=== PATIENT | female | born 1965 | race Caucasian/White ===

== ENCOUNTER 2019-12-26 12:11 | Outpatient (REF) | payer MEDICAID, SELFPAY ==
[2019-12-26 13:39] LABS: MANUAL DIFF FLAG NO
[2019-12-26 13:41] LABS: Basophils Percent Auto 0.3 % (0-2); Hematocrit 33.5 % (37-47); Hemoglobin 11.2 g/dl (12.0-16.0); Imm Gran Abs Auto 0.03 X10*3/uL (0.00-0.03); Imm Gran Pct Auto 0.3 % (0.0-0.4); Lymphocytes Absolute Auto 2.2 X10*3/uL (1.2-4.9); Lymphocytes Percent Auto 21.2 % (20-40); Mean Corpuscular HGB Conc 33.4 g/dl (31.0-35.0); Mean Corpuscular Hemoglobin 31.9 pg (27.0-33.0); Mean Corpuscular Volume 95.4 fL (80-98); Mean Platelet Volume 11.2 fL (9.4-12.3); Monocytes Percent Auto 9.4 % (2-11); Neutrophils Percent Auto 68.8 % (45-73); Platelet Count 334 X10*3/uL (160-400); Red Blood Count 3.51 X10*6/uL (4.20-5.50); Red Cell Distribution Width 11.6 % (11.0-16.0); White Blood Count 10.2 X10*3/uL (4.8-10.8)
== END 2019-12-26 12:12 | disposition home or self-care (01) ==
LOC: HO.10HDL 12:11
PROVIDERS: Visit Provider Clinical Nurse Specialist Psychiatric/Mental Health, Adult
DX: Z79.899 Other long term (current) drug therapy (principal)
CPT/HCPCS: 36415; 85025

== ENCOUNTER 2020-01-25 12:47 | Outpatient (REF) | payer MEDICAID, SELFPAY ==
[2020-01-25 13:49] LABS: MANUAL DIFF FLAG NO
[2020-01-25 14:04] LABS: Basophils Percent Auto 0.4 % (0-2); Hematocrit 33.8 % (37-47); Hemoglobin 11.4 g/dl (12.0-16.0); Imm Gran Abs Auto 0.02 X10*3/uL (0.00-0.03); Imm Gran Pct Auto 0.2 % (0.0-0.4); Lymphocytes Absolute Auto 2.5 X10*3/uL (1.2-4.9); Lymphocytes Percent Auto 27.1 % (20-40); Mean Corpuscular HGB Conc 33.7 g/dl (31.0-35.0); Mean Corpuscular Hemoglobin 31.5 pg (27.0-33.0); Mean Corpuscular Volume 93.4 fL (80-98); Mean Platelet Volume 11.1 fL (9.4-12.3); Monocytes Absolute Auto 0.7 X10*3/uL (0.1-1.2); Monocytes Percent Auto 7.5 % (2-11); Neutrophils Absolute Auto 6.1 X10*3/uL (2.0-8.3); Neutrophils Percent Auto 64.8 % (45-73); Platelet Count 360 X10*3/uL (160-400); Red Blood Count 3.62 X10*6/uL (4.20-5.50); Red Cell Distribution Width 11.9 % (11.0-16.0); White Blood Count 9.4 X10*3/uL (4.8-10.8)
== END 2020-01-25 12:48 | disposition home or self-care (01) ==
LOC: HO.10HDL 12:47
PROVIDERS: Visit Provider Clinical Nurse Specialist Psychiatric/Mental Health, Adult
DX: Z79.899 Other long term (current) drug therapy (principal)
CPT/HCPCS: 36415; 85025

== ENCOUNTER 2020-03-09 09:58 | Outpatient (REF) | payer MEDICAID, SELFPAY ==
[2020-03-09 10:35] LABS: MANUAL DIFF FLAG NO
[2020-03-09 10:38] LABS: Basophils Percent Auto 0.4 % (0-2); Eosinophils Absolute Auto 0.2 X10*3/uL (0.0-0.4); Eosinophils Percent Auto 2.4 % (0-4); Hematocrit 33.3 % (37-47); Hemoglobin 10.9 g/dl (12.0-16.0); Imm Gran Abs Auto 0.01 X10*3/uL (0.00-0.03); Imm Gran Pct Auto 0.1 % (0.0-0.4); Lymphocytes Percent Auto 27.8 % (20-40); Mean Corpuscular HGB Conc 32.7 g/dl (31.0-35.0); Mean Corpuscular Hemoglobin 30.8 pg (27.0-33.0); Mean Corpuscular Volume 94.1 fL (80-98); Mean Platelet Volume 10.7 fL (9.4-12.3); Monocytes Absolute Auto 0.7 X10*3/uL (0.1-1.2); Monocytes Percent Auto 10.1 % (2-11); Neut%MD 59.2 %; Neutrophils Absolute Auto 4.1 X10*3/uL (2.0-8.3); Neutrophils Percent Auto 59.2 % (45-73); Platelet Count 301 X10*3/uL (160-400); Red Blood Count 3.54 X10*6/uL (4.20-5.50); Red Cell Distribution Width 11.9 % (11.0-16.0)
== END 2020-03-09 09:59 | disposition home or self-care (01) ==
LOC: HO.LAB 09:58
PROVIDERS: PCP Internal Medicine Geriatric Medicine; Visit Provider Psychiatry & Neurology Psychiatry
DX: Z79.899 Other long term (current) drug therapy (principal)
CPT/HCPCS: 36415; 85025; 85048

== ENCOUNTER → 2020-05-13 15:23 | Outpatient (BNVA) | payer MEDICAID, SELFPAY | PROVIDERS: PCP Internal Medicine Geriatric Medicine; Visit Provider Nurse Practitioner ==

== ENCOUNTER → 2020-05-30 09:31 | Outpatient (BNVA) | payer MEDICAID, SELFPAY | PROVIDERS: PCP Internal Medicine Geriatric Medicine; Visit Provider Nurse Practitioner ==

== ENCOUNTER → 2021-07-03 11:29 | Outpatient (BNVA) | payer MEDICAID, SELFPAY | PROVIDERS: PCP Internal Medicine Geriatric Medicine; Referring Provider Internal Medicine Geriatric Medicine; Visit Provider Nurse Practitioner | DX: Z51.81 Encounter for therapeutic drug level monitoring (principal); K62.6 Ulcer of anus and rectum; K59.00 Constipation, unspecified | CPT/HCPCS: 99212 ==

== ENCOUNTER → 2022-01-01 10:49 | Outpatient (BNVA) | payer MEDICAID, SELFPAY | PROVIDERS: PCP Internal Medicine Geriatric Medicine; Referring Provider Internal Medicine Geriatric Medicine; Visit Provider Nurse Practitioner | DX: K59.00 Constipation, unspecified (principal); K62.6 Ulcer of anus and rectum; D12.6 Benign neoplasm of colon, unspecified | CPT/HCPCS: 99212 ==

== ENCOUNTER 2022-03-19 10:24 | Outpatient (REF) | payer MEDICAID, SELFPAY ==
--- NOTE | ~2022-03-19 | MM_ITS ---
EXAMINATION: MM SCREENING DIGITAL BREAST TOMOSYNTHESIS, BILATERAL CLINICAL INFORMATION: Screening. Asymptomatic. The lifetime risk of breast cancer based on the Tyrer-Cuzick Model is 6%. COMPARISON: Mammography: 04/19/2014, 12/06/2012 TECHNIQUE: Digital breast tomosynthesis is performed in both the craniocaudal and mediolateral oblique views along with computer-aided detection (CAD). Synthesized 2D images are generated from the tomosynthesis. Additional exaggerated right CC view is provided. FINDINGS: The breasts are heterogeneously dense, which may obscure small masses (ACR BI-RADS breast composition Category c). Breast tissue composition borders on extremely dense in the anterior breasts. Parenchymal pattern is similar to prior studies. There is no interval mass or architectural abnormality. Scattered bilateral similar appearing predominantly dermal calcifications and some vascular calcifications are present. The axilla are unremarkable. The skin contours are smooth. MM/MM tomosynthesis screening BI IMPRESSION: No mammographic evidence of malignancy. ASSESSMENT: BI-RADS 2: Benign RECOMMENDATION: Routine annual mammography screening. This patient's information was entered into a reminder system with a target due date for their next mammogram.
== END 2022-03-19 10:25 | disposition home or self-care (01) ==
LOC: HO.MAMMO 10:24
PROVIDERS: PCP Internal Medicine Geriatric Medicine; Visit Provider Internal Medicine Geriatric Medicine
DX: Z12.31 Encounter for screening mammogram for malignant neoplasm of breast (principal)
CPT/HCPCS: 77063; 77067

== ENCOUNTER → 2022-03-25 10:33 | Outpatient (BNVA) | payer MEDICAID, SELFPAY | PROVIDERS: PCP Internal Medicine Geriatric Medicine; Visit Provider Nurse Practitioner | DX: K59.04 Chronic idiopathic constipation (principal); K64.9 Unspecified hemorrhoids | CPT/HCPCS: 99212 ==

== ENCOUNTER → 2022-06-05 10:48 | Outpatient (BNVA) | payer MEDICAID, SELFPAY | PROVIDERS: PCP Internal Medicine Geriatric Medicine; Visit Provider Nurse Practitioner | DX: K59.00 Constipation, unspecified (principal); K64.9 Unspecified hemorrhoids; K62.6 Ulcer of anus and rectum | CPT/HCPCS: 99212 ==

== ENCOUNTER 2022-12-31 08:05 | Outpatient (AMB) | payer MEDICAID, SELFPAY ==
[2022-12-31 08:09] VITALS: BP 133/62; PULSE 92; BMI 23.3
--- NOTE | 2022-12-31 08:09 | A.OFFVIS_ITS ---
Intake Vital Signs 12/31/22 08:09 Height 5 ft 1 in Weight 123 lb 7.342 oz BMI 23.3 BP 133/62 Blood Pressure Location Rt brachial Position Sitting Pulse 92 Pulse Source Pulse Oximeter Intake Visit Reasons: 6 months f/u [facility]IC Intake Note: Pt presents to the office today for a 6 month follow up for CIC. Pt states she is doing well and states she has been doing better with the medications and hasn't had constipation issues. Pt denies any other GI concerns at this time. Accompanied by: day habilitation supervisor Allergies divalproex sodium [From DEPAKOTE] Allergy (Unknown, Verified 12/31/22 08:10) UNKNOWN easy off Allergy (Severe, Uncoded 12/31/22 08:10) Unknown HPI 6 months f/u [facility]IC HPI Details Assessment & Plan (1) Constipation: Code(s): K59.00 - Constipation, unspecified Plan: They ran out of senna, we had refilled it but the pharmacy seemed to miss dispensing it. Obviously, this caused her to be constipated. They called the pharmacy and they will not restart this. I change the order to 2 tabs qhs and 1- 2 tabs prn if needed for CIC, since she may need more initially. ROV 6 mos (2) Hemorrhoids: Code(s): K64.9 - Unspecified hemorrhoids (3) Tubular adenoma of colon: Comment: 2019 colonoscopy repeat in 5 years Code(s): D12.6 - Benign neoplasm of colon, unspecified (4) Rectal ulcer: Code(s): K62.6 - Ulcer of anus and rectum Medications: Refilled methylcellulose (l axative) (Citrucel ) 1,000 mg (2 x 500 mg) PO DAILY 30 da ys 60 tabs 11RF K59.00 - Constipat ion, unspecified, K62.6 - Ulcer of a nus and rectum Discontinued bisacodyl (Dulcola x (bisacodyl)) Discontinued Reaso n: Doctor's Order 10 mg (2 x 5 mg) P O BEDTIME 30 days 60 tabs 6RF K59.00 - Constipat ion, unspecified TODAY'S VISIT She is here with her asian studies program chair. She is now doing well with her senna, but likes taking it all qd in stead of bid. This is fine. She expresses concerns about swallowing larger pills, apparently her pharmacy is change manager of construction is on some of them and although she does not choke she does not like swallowing larger pills. Apparently this is happen with her closet oral and with her CLozaril and Citrucel. Although I cannot address the Clozaril. I can say that is perfectly fine to crush the Citrucel tablets of put them in applesauce. We also talked about doing the powder in water but she does not prefer this. ROV 6 mos. She will be due for repeat colonoscopy in 2023 we should discuss this at her next visit. [facility] Surgical History Hx of colonoscopy Family History Family/Other No problems noted. Social History (Updated 12/31/22 @ 08:12 by Antoinette Waddell MA) Alcohol intake: current Alcohol intake frequency: does not drink Patient Tobacco Use Status: Never used Tobacco Review of Systems Const Denies fatigue, Denies fever(s), Denies night sweats, Denies poor appetite and Denies weight loss ENT Reports Normal hearing present, Denies dental pain, Denies dysphagia, Denies hearing loss, Denies mouth pain, Denies odynophagia, Denies throat swelling, Denies tongue swelling and Reports other (Dentition adequate) Card Reports no additional complaints Resp Reports no additional complaints GI Denies abdominal pain, Denies melena, Denies bloating, Denies hematochezia, Reports constipation, Denies GI cramping, Denies dysphagia, Denies excessive flatus, Denies early satiety, Denies heartburn, Denies diarrhea, Denies nausea, Denies odynophagia, Denies vomiting and Denies hematemesis Skin/Breast Denies pruritus, Denies lesions, Denies rash and Denies jaundice Neuro Reports Normal hearing present and Denies Abnormal speech present Endo Denies fatigue Aller/Immun Denies throat swelling and Denies tongue swelling Physical Exam Vital Signs: Last Vital Signs Pulse 92 12/31/22 08:09 BP 133/62 12/31/22 08:09 BMI result Body Mass Index 23.3 Const General: cooperative, no acute distress, well developed and well groomed Nutritional Appearance: average body habitus and well nourished Orientation/consciousness: oriented to person, oriented to place and oriented to time Limitations: No language barrier and other limitations HEENT Head: Yes normocephalic and Yes atraumatic Eyes General: appearance normal, both eyes and all related structures Pupils: Equal, round and reactive pupils present Neck Neck: Yes normal visual inspection and Yes no lymphadenopathy Thyroid: Thyroid normal Resp Effort & Inspection: normal respiratory effort and able to speak in complete sentences Auscultation: clear to auscultation bilaterally Cardio Rate: regular rate Rhythm: regular rhythm Heart sounds: Normal, physiologic split S2 sound present Peripheral pulses: radial pulses present and posterior tibial pulses present GI Inspection: No distended and No Abdominal panniculus present Palpation (GI): Soft to palpation, nontender, no guarding, not rigid and No hepatosplenomegaly present Percussion: Yes normal to percussion Auscultation: normal bowel sounds Rectal Exam - Female: deferred Skin General skin exam: no rashes or lesions noted, turgor normal, skin not dry, no jaundice, No spider nevi and no striae Rashes: no rashes Nails: normal Neuro General: oriented to person, oriented to place and oriented to time Cranial nerves: Yes Equal, round and reactive pupils present and Yes Normal hearing present Speech: No Abnormal speech present Extrem General: Yes normal to inspection, No clubbing, No cyanosis and No edema Psych Appearance: grossly normal and well kempt Mental Status: mental status grossly normal Speech and movement: Normal speech and movement present Affect: normal affect Attitude: cooperative Thought process: Normal thought process present and not confabulating Thought content: Normal thought content present Insight: Limited insight present (Psych) Judgement: Limited judgement present (Psych) Assessment & Plan Assessment & Plan (1) Constipation: Code(s): K59.00 - Constipation, unspecified Plan: She is here with her asian studies program chair. She is now doing well with her senna, but likes taking it all qd in stead of bid. This is fine. She expresses concerns about swallowing larger pills, apparently her pharmacy is change manager of construction is on some of them and although she does not choke she does not like swallowing larger pills. Apparently this is happen with her closet oral and with her CLozaril and Citrucel. Although I cannot address the Clozaril. I can say that is perfectly fine to crush the Citrucel tablets of put them in applesauce. We also talked about doing the powder in water but she does not prefer this. ROV 6 mos. She will be due for repeat colonoscopy in 2023 we should discuss this at her next visit. (2) Tubular adenoma of colon: Comment: 2019 colonoscopy repeat in 5 years Code(s): D12.6 - Benign neoplasm of colon, unspecified Medications: Changed From sennosides (senna) 17.2 mg (2 x 8.6 mg) PO BID 30 days 120 tabs 6RF K59.00 - Constipation, unspecified, K62.6 - Ulcer of anus and rectum To sennosides (senna) 17.2 mg (2 x 8.6 mg) PO DAILY 30 days 60 tabs 6RF K59.00 - Constipation, unspecified, K62.6 - Ulcer of anus and rectum From methylcellulose (laxative) (Citrucel) 1,000 mg (2 x 500 mg) PO DAILY 30 days 60 tabs 11RF K59.00 - Constipation, unspecified, K62.6 - Ulcer of anus and rectum To methylcellulose (laxative) (Citrucel) Ok to crush and put in applesauce, etc 1,000 mg (2 x 500 mg) PO DAILY 30 days 60 tabs 11RF K59.00 - Constipation, unspecified, K62.6 - Ulcer of anus and rectum Refilled docusate sodium (Colace) 100 mg PO BID 30 days 60 caps 11RF K59.00 - Constipation, unspecified, K62.6 - Ulcer of anus and rectum Coding Level of Care Code Est Pt Level 3 (81544) Diagnoses Constipation K59.00 Tubular adenoma of colon D12.6
== END 2022-12-31 08:30 | disposition home or self-care (01) ==
PROVIDERS: Visit Provider Nurse Practitioner
DX: K59.00 Constipation, unspecified (principal); D12.6 Benign neoplasm of colon, unspecified
CPT/HCPCS: 99213

== ENCOUNTER → 2022-12-31 08:05 | Outpatient (BNVA) | payer MEDICAID, SELFPAY | PROVIDERS: Visit Provider Nurse Practitioner | DX: K59.00 Constipation, unspecified (principal); D12.6 Benign neoplasm of colon, unspecified | CPT/HCPCS: 99212 ==

== ENCOUNTER 2023-10-06 10:25 | Outpatient (REF) | payer MEDICAID, SELFPAY ==
--- NOTE | ~2023-10-06 | MM_ITS ---
EXAMINATION: MM SCREENING DIGITAL BREAST TOMOSYNTHESIS, BILATERAL CLINICAL INFORMATION: Screening. Asymptomatic. COMPARISON: Mammography: This study is compared with prior exams dating back to 2013. All TECHNIQUE: Digital breast tomosynthesis is performed in both the craniocaudal and mediolateral oblique views along with computer-aided detection (CAD). Synthesized 2D images are generated from the tomosynthesis. FINDINGS: The breasts are extremely dense, which lowers the sensitivity of mammography (ACR BI-RADS breast composition Category d). There are no significant masses, abnormal calcifications, or other abnormalities. Vascular calcifications noted in this 58-year-old patient, right greater than left. MM/MM tomosynthesis screening BI IMPRESSION: No mammographic evidence of malignancy. ASSESSMENT: BI-RADS BI-RADS 2 - Benign Findings RECOMMENDATION: Routine annual mammography screening. 1 year F/U This examination should not preclude the clinical evaluation of a suspicious palpable abnormality. This patient's information was entered into a reminder system with a target due date for their next mammogram. Electronically signed by: Alexsandra Wall MD 11/03/2023 10:04 AM EDT
== END 2023-10-06 10:26 | disposition home or self-care (01) ==
LOC: HO.MAMMO 10:25
PROVIDERS: PCP Internal Medicine Geriatric Medicine; Visit Provider Internal Medicine Geriatric Medicine
DX: Z12.31 Encounter for screening mammogram for malignant neoplasm of breast (principal)
CPT/HCPCS: 77063; 77067

== ENCOUNTER 2024-06-01 10:23 | Outpatient (REF) | payer MEDICAID, SELFPAY ==
[2024-06-01 11:43] LABS: MANUAL DIFF FLAG NO
[2024-06-01 12:02] LABS: Basophils Percent Auto 0.7 % (0-2); Hematocrit 32.9 % (37.0-47.0); Imm Gran Abs Auto 0.02 X10*3/uL (0.00-0.03); Imm Gran Pct Auto 0.3 % (0.0-0.4); Lymphocytes Absolute Auto 1.4 X10*3/uL (1.2-4.9); Lymphocytes Percent Auto 22.3 % (20-40); Mean Corpuscular HGB Conc 33.4 g/dl (31.0-35.0); Mean Corpuscular Hemoglobin 30.8 pg (27.0-33.0); Mean Corpuscular Volume 92.2 fL (80.0-98.0); Mean Platelet Volume 9.9 fL (9.4-12.3); Monocytes Absolute Auto 0.3 X10*3/uL (0.1-1.2); Monocytes Percent Auto 5.6 % (2-11); Neutrophils Absolute Auto 4.3 x10*3/uL (2.0-8.3); Neutrophils Percent Auto 71.1 % (45-73); Platelet Count 406 X10*3/uL (160-400); Red Blood Count 3.57 X10*6/uL (4.20-5.50); White Blood Count 6.1 X10*3/uL (4.8-10.8)
[2024-06-01 12:15] LABS: Alanine Aminotransferase 23 U/L (0-31); Albumin Level 3.7 g/dL (3.5-5.0); Alkaline Phosphatase 119 U/L (39-117); Anion Gap 10 (12-20); Aspartate Amino Transferase 22 U/L (5-31); Bilirubin Total 0.2 mg/dL (0.0-1.0); Blood Urea Nitrogen 9 mg/dL (9-16); Calcium 9.3 mg/dL (8.4-10.2); Carbon Dioxide 29 mmol/L (22-29); Chloride 105 mmol/L (96-108); Cholesterol 131 mg/dL (<200); Estimated Glomerular Filt Rate > 60; Glucose Random 98 mg/dL (60-115); HDL Cholesterol 49 mg/dL (>40); Iron 47 mcg/dL (30-160); LDL Cholesterol Calculated 77 mg/dL (<100); Percent Iron Saturation 21 % (15-50); Sodium 140 mmol/L (135-145); Total Iron Binding Capacity 221 mcg/dL (228-428); Total Protein 8.2 g/dL (6.5-8.0); Triglycerides 27 mg/dL (<150); Unsaturated Iron Binding 174 ug/dL
--- OUTSIDE RECORDS SUMMARY | 2024-06-01 12:16 | XMS_ITS | Encounter Summary ---
Author Organization [facility] Address [address] [place] [address] [address] [place] [address] Care Team Providers Care Master Deputy Sheriff Court Security Name Role Phone Name, Fam HUIZAR Primary Care Provider [phone] Lesia Carrasco MD Primary Care Provider + Encounter Details Date Type Department Care Team (Late st Contact Info) Description 08/05/2022 Abstract [facility] [address] [place], [place] [phone] Name, MD Fam [address] [place] [address] Social History Tobacco Use Types Packs/Day Years Used Date Smoking Tobacco: Never Assessed Comments Unknown Sex and Gender Information Value Date Recorded Sex Assigned at Female 12/22/2021 10:14 AM EDT Legal Sex Female 10:14 AM EDT Gender Identity Choose not to disclose 10:14 AM EDT Sexual Orientation Choose not to disclose 2021 10:14 AM EDT documented as of this encounter Plan of Treatment Not on file documented as of this encounter Procedures Procedure Name Priority Date/Time Associated Diagnosis Comments COLONOSCOPY Routine 06/21/2018 9:16 AM EDT documented in this encounter Results * Colonoscopy (06/21/2018 9:16 AM EDT) Colonoscopy Normal Normal Narrative Bernice Pham - 06/21/2018 9:16 AM EDT Recommended 5 year [place] ( [facility] Historical Provider HEALTH MAINTENANCE Final Result documented in this encounter Visit Diagnoses Not on filedocumented in this encounter Care Teams Master Deputy Sheriff Court Security Relationship Specialty Start Date End Date Name, MD Fam [address] [place] [address] PCP - General Family Medicine 10/05/17 04/13/24 Lesia Carrasco MD [address] [place] [address] PCP - General Internal Medicine 04/14/24 Kristine Silva 10/26/13 documented as of this encounter
--- OUTSIDE RECORDS SUMMARY | 2024-06-01 12:16 | XMS_ITS | Encounter Summary ---
Author Organization [facility] Address [address] [place] [address] [address] [place] [address] Care Team Providers Care Barrel Planer Name Role Phone NameFam MD Primary Care Provider [phone] Lesia Carrasco MD Primary Care Provider + Encounter Details Date Type Department Care Team (Late st Contact Info) Description 04/06/2022 Abstract [facility] [address] [place] [address] [phone] Name, MD Fam [address] [place] [phone] Social History Tobacco Use Types Packs/Day Years [...] on file documented as of this encounter Visit Diagnoses Not on filedocumented in this encounter Care Teams Barrel Planer Relationship Specialty Start Date End Date NameFam MD [address] [place] [address] [phone] PCP - General Family Medicine 10/05/17 04/13/24 Lesia Carrasco MD [address] [place] [address] [phone] PCP - General Internal Medicine 04/14/24 Kristine Silva 10/26/13 documented as of this encounter
--- OUTSIDE RECORDS SUMMARY | 2024-06-01 12:16 | XMS_ITS | Encounter Summary ---
Author Organization [facility] [employer] Address [address] [place] [address] Care Team Providers Care Rug Dyer Name Role Phone Name, Fam HUIZAR Primary Care Provider [phone] Lesia Carrasco MD Primary Care Provider + Reason for Visit * Reason Onset Date Comments Appointment Request 04/03/2024 Encounter Details Date Type Department Care Team (Late st Contact Info) Description 04/03/2024 Telephone [facility] [address] [place], [place] [phone] Name, MD Fam [address] [place], [place] [phone] Appointment Request Social History Tobacco Use Types Packs/Day Years Used Date Smoking Tobacco: Never Smokeless Tobacco: Never Alcohol Use Standard Drinks/Week Comments Never 0 (1 standard drink = 0.6 oz pur e alcohol) Housing Stability Answer Date Recorded What is your housing situation today? I have [place] [place] 12/29/[address] you li ve. Do you have problems with any of the following? None of the above 12/29/2023 Food Insecurity Answer Date Recorded Within the past 12 months, y ou worried that your food would run out before you got money to buy more: Never True 12/29/2023 Within the past 12 months,th e food you bought just didn't last and you didn't have enough money to get more: Never True 07/2023 Transportation Answer Date Recorded In the past 12 months, has l ack of transportation kept you from medical appts, meetings, work or from getting things needed for daily living? No 12/29/2023 Utilities Answer Date Recorded In the past 12 months, has t he electric, gas, oil or water company threatened to shut off services in your home? No 12/29/2023 Internet Access Answer Date Recorded Internet Access Q1 Yes 12/29/2023 Internet Access Q2 Not on file 12/29/2023 Comments No Sex and Gender Information Value Date Recorded Sex Assigned at Female 12/22/2021 10:14 AM EDT Legal Sex Female 10:14 AM EDT Gender Identity Choose not to disclose 10:14 AM EDT Sexual Orientation Choose not to disclose 2021 10:14 AM EDT documented as of this encounter Miscellaneous Notes * Telephone Encounter - Roel Eliu - 04/03/2024 4:51 PM EST TC from pt requesting an apptmnt for a pap for the month of april .. Pt would like Dr Carrasco toconduct the pap . documented in this encounter Plan of Treatment Not on file documented as of this encounter Visit Diagnoses Not on filedocumented in this encounter Care Teams Rug Dyer Relationship Specialty Start Date End Date Name, MD Fam [address] [place] [address] PCP - General Family Medicine 10/05/17 04/13/24 Lesia Carrasco MD [address] [place] [address] PCP - General Internal Medicine 04/14/24 Kristine Silva 10/26/13 documented as of this encounter
--- OUTSIDE RECORDS SUMMARY | 2024-06-01 12:17 | XMS_ITS | Clinical Summary ---
Author Organization [employer] Address [address] [place] [address] 7t [place] [address] Care Team Providers Care Research Scholar Name Role Phone Lesia Carrasco MD Primary Care Provider + Allergies Active Allergy Reactions Criticality Noted Date Comments Valproic Acid 02/25/2018 Medications docusate sodium (Colace) 100 MG capsuleIndication s:Constipation, unspecified constipation type TAKE 2 CAPSULE BY ORAL ROUTE EVERY DAY AT BEDTIME 180 capsule 3 3 Active LORazepam (Ativan) 1 MG tablet TAKE ONE (1) TABLET BY MOUTH THREE TIMES A DAY 3 Active benztropine (Cogentin) 1 MG tablet TAKE ONE (1) TABLET BY MOUTH TWICE A DAY 3 Active cloZAPine (Clozaril) 100 MG tablet TAKE ONE (1) TABLET BY MOUTH AT BEDTIME 2 Active divalproex (Depakote ER) 500 MG 24 hr tablet Take 2 tablets by mouth. Active mirtazapine (Remeron) 30 MG tablet TAKE ONE (1) TABLET BY MOUTH AT BEDTIME 3 Active naproxen (Naprosyn) 500 MG tablet take 1 tablet by oral route 2 times every day with food for muscle strain pain 2 Active chlorhexidine (Periogard) 0.12 % solution Place 15 mL into mouth between cheek and gum every 6 (six) hours. 1 Active permethrin (Elimite) 5 % cream Apply topically. 3 Active ferrous sulfate 325 (65 Fe) MG EC tabletIndications :Iron deficiency anemia, unspecified iron deficiency anemia type Take 1 tablet by mouth once every other day 45 tablet 3 4 Active folic acid (Folvite) 1 MG tablet TAKE 1 TABLET (1MG) BY ORAL ROUTE EVERY DAY 30 tablet 4 4 Active Ascorbic Acid (vitamin C) 500 MG tablet TAKE 1 TABLET (500 MG) BY MOUTH IN THE MORNING. 90 tablet 1 4 Active Active Problems Problem Noted Date Diagnosed Date Encounter for preventive health examination 12/23 Assessment & Plan (01/06/2024 11:46 AM EST): Discussed with patient re increase fresh fruit and vegetable intake. Counseled re moderate exercise as tolerated, up to 20min/d Patient feels safe at home. PAP smear: up to date, due in 2025. Mammogram: up to date, due in 10/16. Eye exam: overdue, will refer. CRC screen: UTD, due this year (FU TA), will leave a message to GI office to schedule fu. Lipids/FBS: to be ordered, overdue. Vaccinations: agreed to have Covid, Influenza, and TD vaccines. Dental visit: overdue, gave them dental clinic information. Iron deficiency 01/06/2024 Assessment & Plan (06/01/2024 9:54 AM EDT): Patient is not taking iron pills. . Advised to get labs done prior to next visit, POC discussed with Isela her primary caregiver. Follow-up with me in 3 to 4 weeks Assessment & Plan (01/06/2024 11:47 AM EST): Hx taking Iron tabs? Order cbc and iron study, she's not taking iron at this time. Severe mood disorder with psychotic features Assessment & Plan (06/01/2024 9:53 AM EDT): Patient seems to be doing well, no psychotic events or ideations. Continue close follow-up with mental health provider, continue clozapine, Cogentin She feels safe at home and is able to reach out for safety (to her caregivers) Follow-up with me in 6 months Encounters Date Type Department Care Team Description 06/01/2024 9:00 AM EDT Telemedicine [facility] [address] [place] [phone] Lesia Carrasco MD Iron deficiency (Primary Dx); Severe mood disorder with psychotic features (CMS/HCC) 06/01/2024 Travel 05/30/[address] [phone] Lesia Carrasco MD Chart prep 05/09/[address] [address] Lesia Carrasco MD Rekha recall 05/05/2024 Population Health Risk Score [facility] ([facility]) Department [address] [place] [phone] Provider, Population Health Generic 04/15/[address] [address] Lesia Carrasco MD scheduling 04/03/[address] [address] Fam Nunes MD Appointment Request 03/28/[address] [address] Fam Nunes MD Appointment Request from Last 3 Months Immunizations Name Administration Dates Next Due Influenza injectable quadrivalent preservative f ree 01/08/2022 Influenza, IIV3, injectable 10/15/2010, 9 Influenza, seasonal, injectable, preservative fr ee 01/06/2024 Moderna Covid-19 Vaccine 12+ 08/02/2020,07/06/19 21 Pfizer Covid-19 Vaccine + 01/06/2024 TD (adult), 2 Lf tetanus tox oid, preservative free, adsorbed 01/01/1999 Tdap 01/06/2024,11/27/2010 Social History Tobacco Use Types Packs/Day Years Used Date Smoking Tobacco: Never Smokeless Tobacco: Never Tobacco Cessation:Counseling Given: Not Answered Alcohol Use Standard Drinks/Week Comments Never 0 (1 standard drink = 0.6 oz pur e alcohol) Housing Stability Answer Date Recorded What is your housing situation today? I have susy ewst 12/29/[address] you li [...] not to disclose 2021 10:14 AM EDT Last Filed Vital Signs Vital Sign Reading Time Taken Comments Blood Pressure 123/75 01/06/2024 9:41 AM EST Pulse 95 01/06/2024 9:41 AM EST Temperature 36.7 ??C (98.1 ??F) 01/06/2024 9:41 AM ES T Respiratory Rate 16 01/06/2024 9:41 AM EST Oxygen Saturation 100% 01/06/2024 9:41 AM EST Inhaled Oxygen Concentration - - Weight 52.2 kg (115 lb 2 oz) 01/06/2024 9:41 AM EST Height 158 cm (5' 2.21 ) 01/06/2024 9:41 AM EST Body Mass Index 20.91 01/06/2024 9:41 AM EST Plan of Treatment Health Maintenance Due Date Last Done Comments CT Colonography 1965 Depression Screening 1965 FIT DNA/Cologuard 1965 FIT 1965 FOBT 1965 HIV Screening 1965 Sigmoidoscopy 1965 Alcohol/Substance Use Screening 1977 Hepatitis C Screening 06/23/1983 Hepatitis B Vaccines (2 of 3 - 19+ 3-dose series) 04/02/2014 03/05/2014 Pneumococcal Vaccine: 50+ Years (1 of 1 - PCV) 06/23/2015 Zoster Vaccines (1 of 2) 06/23/2015 Colonoscopy 2023 06/21/2018 Colorectal Cancer Screening 2023 SDOH Screening 12/28/2024 12/29/2023 Tobacco Screening 01/05/2025 01/06/2024 Cervical Cancer Screening 06/04/2025 HPV/Cotest 06/04/2025 06/04/2020 Pap Smear 06/04/2025 06/04/2020 Mammogram 10/05/2025 10/06/2023, 02/23, 03/19/2022 DTaP/Tdap/Td Vaccines (3 - Td or Tdap) 01/05/2034 01/06/2024, 11/27/2010, 01/01/1999 RSV Patients and Patients Aged 60 years or older (1 - 1-dose 75+ series) 2040 COVID-19 Vaccine Completed 01/06/2024, , 08/02/2020, Additional history exists Influenza Vaccine Completed 01/06/2024, , 10/15/2010, Additional history exists HIB Vaccines Aged Out No longer eligi ble based on patient's age to complete this topic HPV Vaccines Aged Out No longer eligi ble based on patient's age to complete this topic Hepatitis A Vaccines Aged Out No long er eligible based on patient's age to complete this topic IPV Vaccines Aged Out No longer eligi ble based on patient's age to complete this topic Meningococcal Vaccine Aged Out No gabreil jame eligible based on patient's age to complete this topic RSV under 20 months Aged Out No longe r eligible based on patient's age to complete this topic Rotavirus Vaccines Aged Out No longer eligible based on patient's age to complete this topic Procedures Procedure Name Priority Date/Time Associated Diagnosis Comments IRON AND TOTAL IRON BINDING CAPACITY Routine 06/01/2024 10:28 AM EDT Iron deficiency CBC WITH AUTO DIFFERENTIAL Routine 06/01/2024 10:28 AM EDT Iron deficiency LIPID PANEL WITH REFLEX TO DIRECT LDL Routine 06/01/2024 10:28 AM EDT Encounter for preventive health examination COMPREHENSIVE METABOLIC PANEL Routine 06/01/2024 10:28 AM EDT Iron deficiency BI MAMMOGRAM SCREENING TOMOSYNTHESIS BILATERAL Routine 10/06/2023 10:45 AM EDT HPV MRNA E6/E7 Routine 06/04/2020 10:49 AM EDT THINPREP PAP Routine 06/04/2020 10:49 AM EDT HM COLONOSCOPY Routine 06/21/2018 9:16 AM EDT from Last 3 Months or Most Recently Relevant to Health Maintenance Results * (ABNORMAL) CBC auto differential (06/01/2024 10:28 AM EDT) White Blood Count 6.1 4.8 - 10.8 X10*3/uL [facility] Red Blood Count 3.57(L) 4.20 - 5.50 X10*6/uL [facility] Hemoglobin 11.0(L) 12.0 - 16.0 g/dl [facility] Hematocrit 32.9(L) 37.0 - 47.0 % [facility] Mean Corpuscular Volume 92.2 80.0 - 98.0 fL [facility] Mean Corpuscular Hemoglobin 30.8 27.0 - 33.0 pg [facility] Mean Corpuscular HGB Conc 33.4 31.0 - 35.0 g/dl [facility] Red Cell Distribution Width 12.0 11.0 - 16.0 % [facility] Platelet Count 406(H) 160 - 400 X10*3/uL [facility] Mean Platelet Volume 9.9 9.4 - 12.3 fL [facility] Neutrophils Percent Auto 71.1 45 - 73 % [facility] Imm Gran Pct Auto 0.3 0.0 - 0.4 % [facility] Lymphocytes Percent Auto 22.3 20 - 40 % [facility] Monocytes Percent Auto 5.6 2 - 11 % [facility] Eosinophils Percent Auto 0.0 0 - 4 % [facility] Basophils Percent Auto 0.7 0 - 2 % [facility] NRBC Pct Auto 0.0 0.0 - 0.2 /100WBC [facility] Neutrophils Absolute Auto 4.3 2.0 - 8.3 x10*3/uL [facility] Imm Gran Abs Auto 0.02 0.00 - 0.03 X10*3/uL [facility] Lymphocytes Absolute Auto 1.4 1.2 - 4.9 X10*3/uL [facility] Monocytes Absolute Auto 0.3 0.1 - 1.2 X10*3/uL [facility] Eosinophils Absolute Auto 0.0 0.0 - 0.4 X10*3/uL [facility] Basophils Absolute Auto 0.0 0.0 - 0.2 X10*3/uL [facility] NRBC Abs Auto 0.000 0.0 - 0.012 X10*3/uL [facility] Blood Venous blood specimen / Unknown 06/01/2024 10:28 AM EDT 06/01/2024 11:37 AM EDT us Lesia Carrasco MD LAB BLOOD ORDERABLES Fin al Result Performing Organization Address City/State/[facility] Co de Phone Number [facility] [address] [place] [phone] * BI Mammogram Screening Tomosynthesis Bilateral (10/06/2023 10:45 AM EDT) Anatomical Region Laterality Modality Breast Bilateral Mammography 10/06/2023 10:4 5 AM EDT Narrative 11/03/2023 10:07 AM EDT ? [facility] ? [address] ?[place] [address] ? Mammography Report ? Signed with Addenda ? Patient: Rand,Nicole ?MR#: [id number] ? : 1965 ?Acct:[id number] ? Age/Sex: 58 / F ?ADM Date: 10/05/24 ? Loc: HO.MAMMO ? Attending Dr: Fam Nunes MD ? Ordering Physician: Manju,Fam HUIZAR ?Results: 2Benign Fi ?? ndings ? Date of Service: 10/06/23 ?Follow Up: 1 Year From Orig ?? inal Mammogram ? Procedure(s): MM tomosynthesis screening BI ?? Accession Number(s): [id number] ? cc: Name,Fam ?ADDENDUM ? ADDENDUM #1 ? ADDENDUM: ?? This examination has been reviewed remains a BI-RADS Category 2. ? OVERALL ASSESSMENT: ?? BI-RADS 2 - Benign Findings ? RECOMMENDATION: ?? 1 year F/U ? Electronically signed by: ??La Leon MD ??11/09/2023 01:08 PM EDT RP ? Addendum Dictated By: ?La Leon MD ? Addendum Signed By: ? <Electronically signed by La Leon MD in OV> ? 11/09/23 1308 ?? Addendum Cosigned By: ? DD/ ? TD/TT: 10/06/23 ? EXAMINATION: ?? MM SCREENING DIGITAL BREAST TOMOSYNTHESIS, BILATERAL ? CLINICAL INFORMATION: ? Screening. Asymptomatic. ? COMPARISON: ?? Mammography: This study is compared with prior exams dating back to ?? 2012. All ? TECHNIQUE: ?? Digital breast tomosynthesis is performed in both the craniocaudal and ?? mediolateral oblique views along with computer-aided detection (CAD). ? Synthesized 2D images are generated from the tomosynthesis. ? FINDINGS: ?? The breasts are extremely dense, which lowers the sensitivity of ?? mammography (ACR BI-RADS breast composition Category d). ? There are no significant masses, abnormal calcifications, or other ?? abnormalities. ?? Vascular calcifications noted in this 58-year-old ?? patient, right greater than left. ? MM/MM tomosynthesis screening BI ?? IMPRESSION: ?? No mammographic evidence of malignancy. ? ASSESSMENT: ? BI-RADS BI-RADS 2 - Benign Findings ? RECOMMENDATION: ?? Routine annual mammography screening. ? 1 year F/U ? This examination should not preclude the clinical evaluation of a ?? suspicious palpable abnormality. ? This patient's information was entered into a reminder system with a ?? target due date for their next mammogram. ? Electronically signed by: ??Alexsandra Wall MD ??11/03/2023 10:04 AM ?? EDT RP ? Dictated By: ?Alexsandra Wall MD ? Signed By: ?<Electronically signed by Alexsandra Wall MD in OV> ?11/03/23 1004 ? DD/ 1045 ? TD/TT: 10/06/23 1100 ? Jet Wiper: ? Procedure Note Roopater, Image - 11/09/2023 [facility] [address] [place] [address] Mammography Report Signed with Reggie Patient: Anthony Rand#: [id number] : 1965Acct:[id number] Age/Sex: 58 / FADM Date: 10/06/23 Loc: [facility] Attending Dr: Fam Nunes MD Ordering Physician: Fam Nunesults: 2[facility] Date of Service: 10/06/23Follow Up: 1 Year From Orig inal Mammogram Procedure(s): MM tomosynthesis screening BI Accession Number(s): [id number] cc: Fam Nunes MD ADDENDUM ADDENDUM #1 ADDENDUM: This examination has been reviewed remains a BI-RADS Category 2. OVERALL ASSESSMENT: BI-RADS 2 - Benign Findings RECOMMENDATION: 1 year F/U Electronically signed by: La Leon MD 11/09/2023 01:08 PM EDT RP Addendum Dictated By: La Leon MD Addendum Signed By: <Electronically signed by La Leon MD in OV> 11/09/23 1308 Addendum Cosigned By: DD/ TD/TT: 10/06/23 EXAMINATION: MM SCREENING DIGITAL BREAST TOMOSYNTHESIS, BILATERAL CLINICAL INFORMATION: Screening. Asymptomatic. COMPARISON: Mammography: This study is compared with prior exams dating back to 2013. All TECHNIQUE: Digital breast tomosynthesis is performed in both the craniocaudal and mediolateral oblique views along with computer-aided detection (CAD). Synthesized 2D images are generated from the tomosynthesis. FINDINGS: The breasts are extremely dense, which lowers the sensitivity of mammography (ACR BI-RADS breast composition Category d). There are no significant masses, abnormal calcifications, or other abnormalities. Vascular calcifications noted in this 58-year-old patient, right greater than left. MM/MM tomosynthesis screening BI IMPRESSION: No mammographic evidence of malignancy. ASSESSMENT: BI-RADS BI-RADS 2 - Benign Findings RECOMMENDATION: Routine annual mammography screening. 1 year F/U This examination should not preclude the clinical evaluation of a suspicious palpable abnormality. This patient's information was entered into a reminder system with a target due date for their next mammogram. Electronically signed by: Alexsandra Wall MD 11/03/2023 10:04 AM EDT RP Dictated By: Alexsandra Wall MD Signed By: <Electronically signed by Alexsadnra Wall MD in OV> 11/03/23 1004 DD/ TD/TT: 10/06/231099 Jet Wiper: Fam Nunes MD IM BI PROCEDURES Edited Result - Final * THINPREP PAP (06/04/2020 10:49 AM EDT) Clinical Information: None given [facility] COMMENT [facility] Comment: EXPLANATORY NOTE: ? The Pap is a screening test for cervical cancer. It is ?? not a diagnostic test and is subject to false negative ?? and false positive results. It is most reliable when a ?? satisfactory sample, regularly obtained, is submitted ?? with relevant clinical findings and history, and when ?? the Pap result is evaluated along with historic and ?? current clinical information. ?? Agency Sales Representative: [facility] Comment: MXD, CT (ASCP) CT screening location: [address] ??[address] Interpretation/Res ult: SEE COMMENT [facility] Comment: Negative for intraepithelial lesion or malignancy. Atrophic pattern; predominantly parabasal cells LMP: NONE [facility]IV[facility] Prev. BX: NONE [facility]IV[facility] Prev. PAP: NONE GIVEN [facility] SOURCE: None given [facility] Statement Of Adequacy: SATISFACTORY FOR EVALUATION [facility] 06/04/2020 10:4 9 AM EDT Genesis MARTINEZ LAB PATHOLOGY ORDERABLES Final Result [facility] [address] * HPV mRNA E6/E7 (06/04/2020 10:49 AM EDT) HPV nRNA E6/E7 Not Detected Not Detected [facility] Comment: Methodology: [employer]-Mediated Amplification This assay detects E6/E7 viral messenger RNA (mRNA) from 14 high-risk HPV types (16,18,31,33,35,39,45,51,52,56,58,59,66,68). ? The analytical performance characteristics of this assay have been determined by [employer]. The modifications have not been cleared or approved by the FDA. This assay has been validated pursuant to the CLIA regulations and is used for clinical purposes. ?? For additional information, please refer to http://education.[employer]/faq/VSH195l2 (This link if provided for information/ educational purposes only.) 06/04/2020 10:4 9 AM EDT Genesis Lopez CNDayami LAB BLOOD ORDERABLES Michelle l Result [facility] [address] * Colonoscopy (06/21/2018 9:16 AM EDT) Colonoscopy Normal Normal Narrative Bernice Pham - 06/21/2018 9:16 AM EDT Recommended 5 year follow up ( [facility]) Historical Provider MD HEALTH MAINTENANCE Final Result from Last 3 Months or Most Recently Relevant to Health Maintenance Insurance * Guarantor: Nicole Rand Account Type Relation to Patient Date of Phone Billing Address Personal/Family Self [address] [place] [address] Care Teams Research Scholar Relationship Specialty Start Date End Date Lesia Carrasco MD [address] [facility] [place] [address] PCP - General Internal Medicine 04/14/24 Kristine Silva 10/26/13
--- OUTSIDE RECORDS SUMMARY | 2024-06-01 12:17 | XMS_ITS | Encounter Summary ---
Author Organization [employer] Address [address] [facility] 7t [place] [address] Care Team Providers Care Manager State Name Role Phone Lesia Carrasco MD Primary Care Provider + Reason for Visit * Reason Onset Date Comments Chart prep 05/30/2024 Encounter Details Date Type Department Care Team ([facility] st Contact Info) Description 05/30/2024 Telephone [facility] [address] [place], [place] [phone] Lesia Carrasco MD [address] [place], [place] [phone] Chart prep Social History Tobacco Use Types Packs/Day Years [...] encounter Miscellaneous Notes * Telephone Encounter - Veronica Nguyễn [place] - 05/30/2024 1:45 PM EDT Chart Prep Labs: not done Images: done Vaccines due: yes Referrals: appointment pending Screenings: colonoscopy Overdue care gaps: PHQ-9 and Disability screen documented in this encounter Plan of Treatment Not on file documented as of this encounter Visit Diagnoses Not on filedocumented in this encounter Care Teams Manager State Relationship Specialty Start Date End Date Lesia Carrasco MD [address] [place] [phone] PCP - General Internal Medicine 04/14/24 Kristine Silva 10/26/13 documented as of this encounter
--- OUTSIDE RECORDS SUMMARY | 2024-06-01 12:17 | XMS_ITS | Encounter Summary ---
Author Organization [employer] Address [address] [address] 7[address] [place] [address] Care Team Providers Care Drill Press Hand Name Role Phone Lesia Carrasco MD Primary Care Provider + Encounter Details Date Type Department Care Team (Late st Contact Info) Description 06/01/2024 9:00 AM EDT Telemedicine [facility] [address] [place], [place] [phone] Lesia Carrasco MD [address] [place], [place] [phone] Iron deficiency (Primary Dx); Severe mood disorder with psychotic features (CMS/HCC) Social History Tobacco Use Types Packs/Day Years [...] t he electric, gas, oil or water [employer] threatened to shut off services in your [...] as of this encounter Miscellaneous Notes * Assessment & Plan Note - Lesia Carrasco MD - 06/01/2024 9:53 AM EDT Associated Problem(s): Severe mood disorder with psychotic features (CMS/HCC) Patient seems to be doing well, no psychotic events or ideations. Continue close follow-up with mental health provider, continue clozapine, Cogentin She feels safe at home and is able to reach out for safety (to her caregivers) Follow-up with me in 6 months * Assessment & Plan Note - Lesia Carrasco MD - 06/01/2024 9:53 AM EDT Associated Problem(s): Iron deficiency Patient is not taking iron pills. . Advised to get labs done prior to next visit, POC discussed with Isela her primary caregiver. Follow-up with me in 3 to 4 weeks documented in this encounter Plan of Treatment Not on file documented as of this encounter Visit Diagnoses Diagnosis Iron deficiency- Primary Disorders of iron metabolism Severe mood disorder with psychotic features (CMS/HCC) Other specified episodic mood disorder documented in this encounter Care Teams Drill Press Hand Relationship Specialty Start Date End Date Lesia Carrasco MD [address] [place] [phone] PCP - General Internal Medicine 04/14/24 Kristine Silva 10/26/13 documented as of this encounter
--- OUTSIDE RECORDS SUMMARY | 2024-06-01 12:17 | XMS_ITS | Encounter Summary ---
Author Organization [employer] Address [address] [facility] [address] [place] [address] Care Team Providers Care Shift Mgr Name Role Phone Lesia Carrasco MD Primary Care Provider + Encounter Details Date Type Department Care Team (Latest Contact Info) Description 06/01/2024 Travel Social History Tobacco Use Types Packs/Day Years Used Date Smoking Tobacco: Never Smokeless Tobacco: Never Alcohol Use Standard Drinks/Week Comments Never 0 (1 standard drink = 0.6 oz pur e alcohol) Housing Stability Answer Date Recorded What is your housing situation today? I have [address] 12/29/[address] you [...] on filedocumented in this encounter Care Teams Shift Mgr Relationship Specialty Start Date End Date Lesia Carrasco MD [address] [place] [phone] PCP - General Internal Medicine 04/14/24 Kristine Silva 10/26/13 documented as of this encounter
--- OUTSIDE RECORDS SUMMARY | 2024-06-01 12:17 | XMS_ITS | Clinical Summary ---
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 Ordering Clinician Indication Dosage Frequency Signature (SIG) Comments Components Ativan 1 mg tablet 05-31 00:00: 00 03-29 23:59 :00 No [id number] 1 mg BEDTIME 1 mg BEDTIME (route: oral) Med Classific ation: Central Nervous System Agents benztropine 2 mg tablet 05-31 00:00: 00 03-28 23:59 :00 No [id number] 2 mg BEDTIME 2 mg BEDTIME (route: oral) Med Classific ation: Central Nervous System Agents clozapine 100 mg tablet 05-31 00:00: 00 03-28 23:59 :00 No [id number] 200 mg BEDTIME 200 mg BEDTIME (route: oral) Med Classific ation: Central Nervous System Agents clozapine 50 mg tablet 05-31 00:00: 00 04-27 23:59 :00 No [id number] 50 mg BEDTIME 50 mg BEDTIME (route: oral) Med Classific ation: Central Nervous System Agents cyanocobala min (vit B-12) 1,000 mcg tablet 05-31 00:00: 00 03-28 23:59 :00 No [id number] 1000 mcg DAILY 1000 mcg DAILY (route: oral) Med Classific ation: Electroly te Balance-N utritiona l Products Depakote 500 mg tablet,waqar yed release 05-31 00:00: 00 03-28 23:59 :00 No [id number] 500 mg BEDTIME 500 mg BEDTIME (route: oral) Med Classific ation: Central Nervous System Agents desmopressi n 0.1 mg tablet 05-31 00:00: 00 03-28 23:59 :00 No [id number] 0.1 mg BEDTIME 0.1 mg BEDTIME (route: oral) Med Classific ation: Endocrine ferrous sulfate 325 mg (65 mg iron) tablet 05-31 00:00: 00 03-28 23:59 :00 No [id number] 325 mg DAILY 325 mg DAILY (route: oral) Med Classific ation: Electroly te Balance-N utritiona l Products folic acid 1 mg tablet 05-31 00:00: 00 Yes [id number] 1 mg DAILY 1 mg GAYATRI Y (route: oral) Med Classific ation: Electroly te Balance-N utritiona l Products mirtazapine 30 mg tablet 05-31 00:00: 00 03-28 23:59 :00 No [id number] 60 mg BEDTIME 60 mg BEDTIME (route: oral) Med Classific ation: Central Nervous System Agents Risperdal Consta 25 mg/2 mL intramuscul ar syringe 05-31 00:00: 00 Yes [id number] 25 mg EVERY OTHER WEEK 25 mg EVERY OTHER WEEK (route: intramuscu lar) Med Classific ation: Central Nervous System Agents Risperdal 3 mg tablet 05-31 00:00: 00 Yes [id number] 3 mg BEDTIME 3 mg BEDTIME (route: oral) Med Classific ation: Central Nervous System Agents Vitamin C 500 mg tablet 05-31 00:00: 00 Yes [id number] 500 mg DAILY 500 mg DAILY (route: oral) Med Classific ation: Electroly te Balance-N utritiona l Products Ativan 1 mg tablet 2- 00:00: 00 Yes [id number] 1 mg 3 TIMES DAILY 1 mg 3 TIMES DAILY (route: oral) Med Classific ation: Central Nervous System Agents benztropine 1 mg tablet 2- 00:00: 00 Yes [id number] 1 tablet 2 TIMES DAILY 1 tablet 2 TIMES DAILY (route: oral) Med Classific ation: Central Nervous System Agents clozapine 100 mg tablet 2- 00:00: 00 Yes [id number] 1 tablet BEDTIME 1 tablet BEDTIME (route: oral) Med Classific ation: Central Nervous System Agents Colace 100 mg capsule 03-29 00:00: 00 Yes [id number] 2 capsule BEDTIME 2 capsule BEDTIME (route: oral) Med Classific ation: Gastroint estinal Therapy Agents Depakote 500 mg tablet,waqar yed release 03-29 00:00: 00 Yes [id number] 2 tablet BEDTIME 2 tablet BEDTIME (route: oral) Med Classific ation: Central Nervous System Agents ferrous sulfate 325 mg (65 mg iron) tablet 03-29 00:00: 00 Yes [id number] 1 tablet EVERY OTHER DAY 1 tablet EVERY OTHER DAY (route: oral) Med Classific ation: Electroly te Balance-N utritiona l Products mirtazapine 30 mg tablet 03-29 00:00: 00 04-27 23:59 :00 No [id number] 1 tablet BEDTIME 1 tablet BEDTIME (route: oral) Med Classific ation: Central Nervous System Agents naproxen 500 mg tablet - 00:00: 00 Yes [id number] 1 tablet 2 TIMES DAILY 1 tablet 2 TIMES DAILY (route: oral) Med Classific ation: Analgesic , Anti-infl ammatory or Antipyret ic Periogard 0.12 % mouthwash 2- 00:00: 00 Yes [id number] 15 mL DAILY 15 mL DAILY (route: mucous membrane) Med Classific ation: Mouth-Thr oat-Denta l - Preparati ons permethrin 5 % topical cream 2-05 00:00: 00 Yes [id number] Per instruc tions DIRECTED Per instructio ns DIRECTED (route: topical) Med Classific ation: Dermatolo gical Citrucel 500 mg tablet 3-10 00:00: 00 Yes 2 tablet DAILY 2 tablet DAILY (route: oral) Med Classific ation: Gastroint estinal Therapy Agents Clozaril 25 mg tablet 3-10 00:00: 00 Yes 3 tablet EVERY PM 3 tablet EVERY PM (route: oral) Med Classific ation: Central Nervous System Agents fluoxetine 20 mg capsule -10 00:00: 00 Yes 1 capsule DAILY 1 capsule DAILY (route: oral) Med Classific ation: Central Nervous System Agents hydroxyzine HCl 25 mg tablet 05-01 00:00: 00 Yes 1 tablet EVERY AM 1 tablet EVERY AM (route: oral) Med Classific ation: Central Nervous System Agents mirtazapine 45 mg tablet - 00:00: 00 Yes 1 tablet EVERY PM 1 tablet EVERY PM (route: oral) Med Classific ation: Central Nervous System Agents Senna Lax 8.6 mg tablet 10 00:00: 00 Yes 2 tablet EVERY PM 2 tablet EVERY PM (route: oral) Med Classific ation: Gastroint estinal Therapy Agents Vital Signs Vital Name Observation Time Observation Value Commen ts Temperature 2024-05-30 20:43:00.000 98.6 [degF] Pulse 2024-05-30 20:43:00.000 82 /min Respirations 2024-05-30 20:43:00.000 20 /min Systolic Blood Pressure 2024-05-30 20:43:00.000 142 mm [Hg] Diastolic Blood Pressure 2024-05-30 20:43:00.000 82 mm [Hg] Plan of Treatment Planned Activity Planned Date Details Comments Future Scheduled Test SKILLED NU RSE TO EVALUATE PATIENT, IDENTIFY PRIMARY AND CO-MORBID CONDITIONS CODED PER CODING GUIDELINES, AND DEVELOP PATIENT SPECIFIC PLAN OF CARE THAT INCLUDES PATIENT GOAL FOR HOME HEALTH. [code = SKILLED NURSE TO EVALUATE PATIENT, IDENTIFY PRIMARY AND CO-MORBID CONDITIONS CODED PER CODING GUIDELINES, AND DEVELOP PATIENT SPECIFIC PLAN OF CARE THAT INCLUDES PATIENT GOAL FOR HOME HEALTH.] Future Scheduled Test PATIENT MA Y HAVE ONE SET OF EMERGENCY MEDICATION NOT TO BE PRE-POURED ANY SOONER THAN 24 HOURS BEFORE SEVERE INCLEMENT WEATHER OR EMERGENT EVENT AND FOLLOWING SKILLED NURSE EVALUATION OF PATIENT SAFETY. [code = PATIENT MAY HAVE ONE SET OF EMERGENCY MEDICATION NOT TO BE PRE-POURED ANY SOONER THAN 24 HOURS BEFORE SEVERE INCLEMENT WEATHER OR EMERGENT EVENT AND FOLLOWING SKILLED NURSE EVALUATION OF PATIENT SAFETY.] Future Scheduled Test SKILLED NU RSE TO O/A OF PATIENTS MENTAL/BEHAVIORAL STATUS, ASSESS VITAL SIGNS WEEKLY. ALLOW 2 PRNS FOR MEDICATION MANAGEMENT. [code = SKILLED NURSE TO O/A OF PATIENTS MENTAL/BEHAVIORAL STATUS, ASSESS VITAL SIGNS WEEKLY. ALLOW 2 PRNS FOR MEDICATION MANAGEMENT.] Future Scheduled Test SKILLED NU RSE FOR O/A OF GENERAL HEALTH STATUS OF PAIN, CARDIAC, RESPIRATORY, GASTROINTESTINAL, GENITOURINARY, SKIN, NEUROLOGIC, ENDOCRINE SYSTEMS TO IDENTIFY CHANGES ASSOCIATED WITH EXACERBATION FOR EARLY INTERVENTION OF COMPLICATIONS WEEKLY. [code = SKILLED NURSE FOR O/A OF GENERAL HEALTH STATUS OF PAIN, CARDIAC, RESPIRATORY, GASTROINTESTINAL, GENITOURINARY, SKIN, NEUROLOGIC, ENDOCRINE SYSTEMS TO IDENTIFY CHANGES ASSOCIATED WITH EXACERBATION FOR EARLY INTERVENTION OF COMPLICATIONS WEEKLY.] Future Scheduled Test SKILLED NU RSE TO ADMINISTER MEDICATIONS AND PRE-POUR MEDICATIONS ORDERED PER MEDICATION LIST. [code = SKILLED NURSE TO ADMINISTER MEDICATIONS AND PRE-POUR MEDICATIONS ORDERED PER MEDICATION LIST.] Future Scheduled Test SKILLED NU RSE FOR O/A AND SKILLED TEACHING RELATED TO MANAGEMENT OF DEPRESSIVE SYMPTOMS AND/OR DEPRESSION. SN TO REPORT SIGNIFICANT CHANGE IN DEPRESSIVE SYMPTOMS TO CLINICAL PROVIDER FOR EARLY INTERVENTION. [code = SKILLED NURSE FOR O/A AND SKILLED TEACHING RELATED TO MANAGEMENT OF DEPRESSIVE SYMPTOMS AND/OR DEPRESSION. SN TO REPORT SIGNIFICANT CHANGE IN DEPRESSIVE SYMPTOMS TO CLINICAL PROVIDER FOR EARLY INTERVENTION.] Future Scheduled Test SKILLED NU RSE TO ASSESS PATIENTS PSYCHOSOCIAL STATUS TO IDENTIFY POTENTIAL ISSUES THAT MAY COMPLICATE THE PROVISION OF THE PLAN OF CARE INCLUDING THE PATIENTS ABILITY TO ACCESS COMMUNITY RESOURCES AND PSYCHOSOCIAL SUPPORT SERVICES. [code = SKILLED NURSE TO ASSESS PATIENTS PSYCHOSOCIAL STATUS TO IDENTIFY POTENTIAL ISSUES THAT MAY COMPLICATE THE PROVISION OF THE PLAN OF CARE INCLUDING THE PATIENTS ABILITY TO ACCESS COMMUNITY RESOURCES AND PSYCHOSOCIAL SUPPORT SERVICES.] Future Scheduled Test SKILLED NU RSE WILL MAINTAIN SITUATIONAL AWARENESS FOR SAFETY AND WILL NOTIFY CLINICAL SALES AND MERCHANDISING ASSOCIATE AND PHYSICIAN/PROVIDER WITH ANY CHANGE IN CONDITION. [code = SKILLED NURSE WILL MAINTAIN SITUATIONAL AWARENESS FOR SAFETY AND WILL NOTIFY CLINICAL SALES AND MERCHANDISING ASSOCIATE AND PHYSICIAN/PROVIDER WITH ANY CHANGE IN CONDITION.] Goal 2018-09-29 Patient Goal - R EMAIN IN SENIOR CARE AND MED COMPLIANT, CONTINUE INTERMITTENT VISITS WITH MOM Goal 2018-11-24 Patient Goal - R EMAIN IN SENIOR CARE AND MED COMPLIANT, CONTINUE INTERMITTENT VISITS WITH MOM, ATTEND DAY PROGRAM Goal 2019-01-26 Patient Goal - R EMAIN IN SENIOR CARE AND MED COMPLIANT, CONTINUE INTERMITTENT VISITS WITH MOM, ATTEND DAY PROGRAM Goal 2019-03-28 Patient Goal - R EMAIN IN SENIOR CARE AND MED COMPLIANT, CONTINUE INTERMITTENT VISITS WITH MOM, ATTEND DAY PROGRAM Goal 2019-05-25 Patient Goal - R EMAIN IN SENIOR CARE AND MED COMPLIANT, CONTINUE INTERMITTENT VISITS WITH MOM, ATTEND DAY PROGRAM, GET CONTROL OVER URINARY INCONTINENCE Goal 2019-07-26 Patient Goal - R EMAIN IN SENIOR CARE AND MED COMPLIANT, CONTINUE INTERMITTENT VISITS WITH MOM, ATTEND DAY PROGRAM, GET CONTROL OVER URINARY INCONTINENCE Goal 2023-08-31 Patient Goal - BE MED COMPLI ANT Goal 2023-11-01 Patient Goal - BE MED COMPLI ANT Goal 2023-12-31 Patient Goal - BE MED COMPLI ANT Goal 2024-02-28 Patient Goal - BE MED COMPLI ANT Goal 2024-04-28 Patient Goal - BE MED COMPLI ANT Goal Patient Goal - BE MED COMPLI ANT Goal 2022-09-04 Patient Goal - BE MED COMPLI ANT Goal 2022-11-06 Patient Goal - BE MED COMPLI ANT Goal 2023-01-05 Patient Goal - BE MED COMPLI ANT Goal 2023-03-04 Patient Goal - BE MED COMPLI ANT Goal 2023-05-05 Patient Goal - BE MED COMPLI ANT Goal 2023-07-05 Patient Goal - BE MED COMPLI ANT Goal 2021-09-11 Patient Goal - R EMAIN IN SENIOR CARE AND MED COMPLIANT, CONTINUE INTERMITTENT VISITS WITH MOM, ATTEND DAY PROGRAM, GET CONTROL OVER URINARY INCONTINENCE Goal 2021-11-10 Patient Goal - R EMAIN IN SENIOR CARE AND BE MED COMPLIANT THROUGH NEXT EPISODE Goal 2022-01-08 Patient Goal - R EMAIN IN SENIOR CARE AND BE MED COMPLIANT THROUGH NEXT EPISODE Goal 2022-03-12 Patient Goal - R EMAIN IN SENIOR CARE AND BE MED COMPLIANT THROUGH NEXT EPISODE Goal 2022-05-07 Patient Goal - R EMAIN IN SENIOR CARE AND BE MED COMPLIANT THROUGH NEXT EPISODE Goal 2022-07-09 Patient Goal - BE MED COMPLI ANT Goal 2020-09-18 Patient Goal - R EMAIN IN SENIOR CARE AND MED COMPLIANT, CONTINUE INTERMITTENT VISITS WITH MOM, ATTEND DAY PROGRAM, GET CONTROL OVER URINARY INCONTINENCE Goal 2020-11-14 Patient Goal - R EMAIN IN SENIOR CARE AND MED COMPLIANT, CONTINUE INTERMITTENT VISITS WITH MOM, ATTEND DAY PROGRAM, GET CONTROL OVER URINARY INCONTINENCE Goal 2021-01-15 Patient Goal - R EMAIN IN SENIOR CARE AND MED COMPLIANT, CONTINUE INTERMITTENT VISITS WITH MOM, ATTEND DAY PROGRAM, GET CONTROL OVER URINARY INCONTINENCE Goal 2021-03-13 Patient Goal - R EMAIN IN SENIOR CARE AND MED COMPLIANT, CONTINUE INTERMITTENT VISITS WITH MOM, ATTEND DAY PROGRAM, GET CONTROL OVER URINARY INCONTINENCE Goal 2021-05-15 Patient Goal - R EMAIN IN SENIOR CARE AND MED COMPLIANT, CONTINUE INTERMITTENT VISITS WITH MOM, ATTEND DAY PROGRAM, GET CONTROL OVER URINARY INCONTINENCE Goal 2021-07-15 Patient Goal - R EMAIN IN SENIOR CARE AND MED COMPLIANT, CONTINUE INTERMITTENT VISITS WITH MOM, ATTEND DAY PROGRAM, GET CONTROL OVER URINARY INCONTINENCE Goal 2019-09-20 Patient Goal - R EMAIN IN SENIOR CARE AND MED COMPLIANT, CONTINUE INTERMITTENT VISITS WITH MOM, ATTEND DAY PROGRAM, GET CONTROL OVER URINARY INCONTINENCE Goal 2019-11-23 Patient Goal - R EMAIN IN SENIOR CARE AND MED COMPLIANT, CONTINUE INTERMITTENT VISITS WITH MOM, ATTEND DAY PROGRAM, GET CONTROL OVER URINARY INCONTINENCE Goal 2020-01-19 Patient Goal - R EMAIN IN SENIOR CARE AND MED COMPLIANT, CONTINUE INTERMITTENT VISITS WITH MOM, ATTEND DAY PROGRAM, GET CONTROL OVER URINARY INCONTINENCE Goal 2020-03-21 Patient Goal - R EMAIN IN SENIOR CARE AND MED COMPLIANT, CONTINUE INTERMITTENT VISITS WITH MOM, ATTEND DAY PROGRAM, GET CONTROL OVER URINARY INCONTINENCE Goal 2020-05-21 Patient Goal - R EMAIN IN SENIOR CARE AND MED COMPLIANT, CONTINUE INTERMITTENT VISITS WITH MOM, ATTEND DAY PROGRAM, GET CONTROL OVER URINARY INCONTINENCE Goal 2020-07-18 Patient Goal - R EMAIN IN SENIOR CARE AND MED COMPLIANT, CONTINUE INTERMITTENT VISITS WITH MOM, ATTEND DAY PROGRAM, GET CONTROL OVER URINARY INCONTINENCE Goal 2018-07-28 Patient Goal - R EMAIN IN SENIOR CARE AND MED COMPLIANT, CONTINUE INTERMITTENT VISITS WITH MOM Goal Provider Goal - A PLAN OF CARE WILL BE ESTABLISHED THAT MEETS PATIENT'S HALF-WAY NEEDS AND INCLUDES PATIENT GOAL FOR HOME HEALTH. Goal Provider Goal - MEDICATION WILL BE AVAILABLE DURING INCLEMENT WEATHER OR EMERGENT EVENT THROUGHOUT CERTIFICATION PERIOD. Goal Provider Goal - ALTERED MENTAL/BEHAVIORAL STATUS WILL BE IDENTIFIED PROMPTLY AND INTERVENTION INITIATED QUICKLY TO MINIMIZE ASSOCIATED RISKS THROUGHOUT CERTIFICATION PERIOD. Goal Provider Goal - CHANGE IN GENERAL HEALTH STATUS WILL BE IDENTIFIED AND REPORTED TO PHYSICIAN FOR PROMPT INTERVENTION TO MINIMIZE ASSOCIATED RISKS THROUGHOUT CERTIFICATION PERIOD. Goal Provider Goal - PATIENT WILL COMPLY WITH MEDICATION WHEN SKILLED NURSE ADMINISTERS AND PRE-POURS MEDICATION THROUGHOUT CERTIFICATION PERIOD. Goal Provider Goal - PATIENT WILL REMAIN SAFE WITHOUT DECOMPENSATION IN DEPRESSIVE CONDITION, WHILE MAINTAINING OPTIMAL LEVEL OF MENTAL HEALTH AND WELL BEING THROUGHOUT CERTIFICATION PERIOD. Goal Provider Goal - PSYCHOSOCIAL NEEDS WILL BE IDENTIFIED AND PLAN IMPLEMENTED TO MINIMIZE RISK THROUGHOUT CERTIFICATION PERIOD. Goal Provider Goal - PATIENT WILL REMAIN SAFE IN THE COMMUNITY AND WILL BE FREE OF DANGER TO SELF AND OTHERS THROUGHOUT THE CERTIFICATION PERIOD. Encounters Start Date/Time End Date/Time Encounter Type Admission Type Attending [facility] Care Department Encounter ID Discharge Date Discharge Status Discharge Condition Discharge Reason Percent Goals Met 2013-10-26 00:00:00 2024-06-29 00:00:00 Outpatient RECERTIFIC ATION CHALINO ESTEVEZ [facility] [id number]
[2024-06-01 12:21] LABS: TSH reflex Free T4 0.86 uIU/mL (0.32-4.0); Vitamin D 25-OH Total 14.7 ng/mL (>30)
[2024-06-01 13:49] LABS: Reflex LDLD? No
[2024-06-04 14:24] LABS: TS Negative Control Passed; TS Panel A 0; TS Panel B 0; TS Positive Control Passed; TSpotTB Negative (Negative)
== END 2024-06-01 10:24 | disposition home or self-care (01) ==
LOC: HO.HHCL 10:23
PROVIDERS: Visit Provider Internal Medicine
DX: Z00.00 Encounter for general adult medical examination without abnormal findings (principal); E61.1 Iron deficiency; F39 Unspecified mood [affective] disorder
CPT/HCPCS: 36415; 80053; 80061; 82306; 83540; 84443; 85025; 86481

== ENCOUNTER 2024-12-21 | Outpatient (REF) | payer MEDICAID, SELFPAY ==
--- OUTSIDE RECORDS SUMMARY | 2025-03-14 13:29 | XMS_ITS | Encounter Summary ---
Author Organization [employer] Address [address] [place] [address] [address] [place] [address] Care Team Providers Care Sign Hanger Supervisor Name Role Phone Name, Fam HUIZAR Primary Care Provider [phone] Lesia Carrasco MD Primary Care Provider + Encounter Details Date Type Department Care Team (Late st Contact Info) Description 04/06/2022 Abstract [facility] MEDICINE [address] [place] [address] [phone] Name, MD Fam [address] [place] [phone] Social History Tobacco Use Types Packs/Day Years Used Date Smoking Tobacco: Never Assessed Comments Unknown Sex and Gender Information Value Date Recorded Sex Assigned at Female 12/22/2021 10:14 AM EDT Legal Sex Female 10:14 AM EDT Gender Identity Choose not to disclose 10:14 AM EDT Sexual Orientation Choose not to disclose 2021 10:14 AM EDT documented as of this encounter Plan of Treatment Upcoming Encounters Date Type Department Care Team (Late st Contact Info) Description 04/26/2025 9:45 AM EST Office Visit [facility] MEDICINE [address] [place] [address] [phone] Lesia Carrasco MD [address] [place] [address] [phone] documented as of this encounter Visit Diagnoses Not on filedocumented in this encounter Care Teams Sign Hanger Supervisor Relationship Specialty Start Date End Date NameFam MD [address] [place] [phone] PCP - General Family Medicine 10/05/17 04/13/24 Lesia Carrasco MD [address] [place] [address] [place] [id number] PCP - General Internal Medicine 04/14/24 Kristine Silva 10/26/13 documented as of this encounter
--- OUTSIDE RECORDS SUMMARY | 2025-03-14 13:29 | XMS_ITS | Encounter Summary ---
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 Name Role Phone Name, Fam HUIZAR Primary Care Provider [phone] Lesia Carrasco MD Primary Care Provider + Encounter Details Date Type Department Care Team (Late st Contact Info) Description 08/05/2022 Abstract [facility] [address] [place] [phone] Name, MD Fam [address] [place] [address] [phone] Social History Tobacco Use Types Packs/Day Years [...] Description 04/26/2025 9:45 AM EST Office Visit [address] [phone] Lesia Carrasco MD [address] [place] [address] [phone] documented as of this encounter Procedures Procedure Name Priority Date/Time Associated Diagnosis Comments HM COLONOSCOPY Routine 06/21/2018 9:16 AM EDT documented in this encounter Results * Hm Colonoscopy (06/21/2018 9:16 AM EDT) Colonoscopy Normal Normal Narrative Bernice Pham - 06/21/2018 9:16 AM EDT Recommended 5 year follow up ( [facility] Historical Provider HEALTH MAINTENANCE Final Result documented in this encounter Visit Diagnoses Not on filedocumented in this encounter Care Teams Field Hockey And Lacrosse Coach Relationship Specialty Start Date End Date Name, MD Fam [address] [place] [address] PCP - General Family Medicine 10/05/17 04/13/24 Lesia Carrasco MD [address] [place] [address] PCP - General Internal Medicine 04/14/24 Kristine Silva 10/26/13 documented as of this encounter
--- OUTSIDE RECORDS SUMMARY | 2025-03-14 13:29 | XMS_ITS | Clinical Summary ---
Author Organization [employer] Address [address] [place] [address] [address] [place] [address] Care Team Providers Care Residential Advisor Name Role Phone Lesia Carrasco MD Primary [...] Encounters Date Type Department Care Team Description 01/09/2025 Telephone [facility] [address] [place] [address] Lesia Carrasco MD Recall 12/19/2024 Telephone [facility] [address] [place] [address] Lesia Carrasco MD Medication Question from Last 3 Months Immunizations Immunization Administration [...] the past 12 months, has t he [employer], gas, oil or water [employer] threatened to shut off services in your [...] 01/06/2024 9:41 AM EST Plan of Treatment Upcoming Encounters Date Type Department Care Team (Late st Contact Info) Description 04/26/2025 9:45 AM EST Office Visit [facility] [address] [place], [place] [phone] Lesia Carrasco MD [address] [place] [address] Health Maintenance Due Date Last Done Comments [...] Colonoscopy 2023 06/21/2018 Colorectal Cancer Screening 2023 COVID-19 Vaccine ( season) 2024 01/06/2024, 07/11/2021, 08/02/2020, Additional history exists Influenza Vaccine (#1) 2024 , 01/08/2022, 10/15/2010, Additional history exists SDOH Screening 12/28/2024 12/29/2023 Cervical Cancer Screening 06/04/2025 HPV/Cotest 06/04/2025 06/04/2020 Pap Smear 06/04/2025 06/04/2020 Tobacco Screening 09/06/2025 09/06/2024 Mammogram 10/05/2025 10/06/2023, 02/23, 03/19/2022 DTaP/Tdap/Td Vaccines (3 - Td or Tdap) 01/05/2034 01/06/2024, 11/27/2010, 01/01/1999 RSV Patients and Patients Aged 60 years or older (1 - 1-dose 75+ series) 2040 HIB Vaccines Aged Out No longer eligi [...] AM EDT Narrative 11/03/2023 10:07 AM EDT [facility] [address] [place] [address] Mammography Report Signed with Addenda Patient: Nicole Rand MR#: [id number] : 1965 Acct:[id number] Age/Sex: 58 / F ADM Date: 10/06/23 Loc: HO.MAMMO Attending Dr: Fam Nunes MD Ordering Physician: Fam Nunes MD Results: 2Benign Fi ndings Date of Service: 10/06/23 Follow Up: 1 Year From Orig inal Mammogram Procedure(s): MM tomosynthesis screening BI Accession Number(s): [id number] cc: Fam Nunes MD ADDENDUM ADDENDUM #1 [...] compared with prior exams dating back to 2012. All TECHNIQUE: Digital breast tomosynthesis is performed [...] in OV> 11/03/23 1004 DD/ TD/TT: 10/06/231099 Roll Press Operator: Procedure Note Donotuseinterpreter, Image - [facility] [address] [place] [address] Mammography Report Signed with Addenda Patient: Anthony Rand#: [id number] : 1965Acct:[id number] Age/Sex: 58 / FADM Date: 10/06/23 Loc: HO.MAMMO Attending Dr: Fam Nunes MD Ordering Physician: Name,Fam MDResults: 2Benign Fi ndings Date of Service: 10/06/23Follow Up: 1 Year From Orig inal Mammogram Procedure(s): MM tomosynthesis screening BI Accession Number(s): [id number] cc: Name,Fam HUIZAR ADDENDUM ADDENDUM #1 ADDENDUM: This examination has [...] 11/03/23 1004 DD/ 1045 TD/TT: 10/06/23 1100 Roll Press Operator: Fam Nunes MD IMG BI PROCEDURES Edited Result - Final * [...] along with historic and current clinical information. Assistant Basketball Coach: [facility] Comment: MXD, CT (ASCP) CT screening location: [place] [address] Interpretation/Res ult: [facility] [...] Final Result [facility] [address] * HPV mRNA E6/E7 (06/04/2020 10:49 AM EDT) HPV nRNA E6/E7 Not Detected Not Detected [facility] Comment: Methodology: Marine Underwriter-Mediated Amplification This assay detects E6/E7 viral messenger RNA (mRNA) from 14 high-risk HPV types (16,18,31,33,35,39,45,51,52,56,58,59,66,68). The analytical performance characteristics of this assay have been determined by [facility]. The modifications have not been cleared or approved by the FDA. This assay has been validated pursuant to the CLIA regulations and is used for clinical purposes. For additional information, please refer to http://education.[employer]iva[employer]/faq/CKC162p4 (This link if provided for information/ educational purposes only.) 06/04/2020 10:4 9 AM EDT [facility] BLOOD ORDERABLES Michelle naik Result [facility] [address] * Colonoscopy (06/21/2018 9:16 AM EDT) Colonoscopy Normal Normal Narrative Bernice Pham - 06/21/2018 9:16 AM EDT Recommended 5 year follow up ( [facility]) Historical Provider MD HEALTH MAINTENANCE Final Result from Last 3 Months or Most Recently Relevant to Health Maintenance Insurance [facility] C3 Care Teams Residential Advisor Relationship Specialty Start Date End Date Lesia Carrasco MD [address] [place] [phone] PCP - General Internal Medicine 04/14/24 Kristine [facility] 10/26/13
== END 2024-12-21 00:01 | disposition home or self-care (01) ==
LOC: CF
PROVIDERS: PCP Internal Medicine Geriatric Medicine; Visit Provider Nurse Practitioner
DX: Z01.818 Encounter for other preprocedural examination (principal); K59.00 Constipation, unspecified; D12.6 Benign neoplasm of colon, unspecified; K62.6 Ulcer of anus and rectum; Z79.899 Other long term (current) drug therapy
CPT/HCPCS: 99212

== ENCOUNTER 2024-12-21 10:06 | Outpatient (AMB) | payer MEDICAID, SELFPAY ==
--- NOTE | 2024-12-21 10:11 | MHC.OFFVIS ---
Vital Signs 12/21/24 10:15 Height 5 ft 1 in Weight 116 lb BMI 21.9 BP 121/68 Blood Pressure Location Rt brachial Position Sitting Pulse 75 Intake Visit Reasons: f/u CIC r/s from 03/07/24 Intake Note: Nicole presents to in office follow up of CIC. CC: Patient reports doing well and denies having any GI symptoms or concerns. Game Trapper Required: No Accompanied by: staff Allergies divalproex sodium (From DEPAKOTE) Allergy (Unknown, Verified 12/21/24 10:24) UNKNOWN easy off Allergy (Severe, Uncoded 12/31/22 08:10) Unknown HPI HPI f/u CIC r/s from 03/07/24: Details: Assessment & Plan (1) Constipation: Code(s): K59.00 - Constipation, unspecified Plan: She is here with her director of program management. She is now doing well with her senna, but likes taking it all qd in stead of bid. This is fine. 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 Apparently this is happen with her closet oral and with her CLozaril and Citrucel. Although I cannot address the Clozaril. I can say that is perfectly fine to crush the Citrucel tablets of put them in applesauce. We also talked about doing the powder in water but she does not prefer this. ROV 6 mos. She will be due for repeat colonoscopy in 2023 we should discuss this at her next visit. (2) Tubular adenoma of colon: Comment: 2019 colonoscopy repeat in 5 years Code(s): D12.6 - Benign neoplasm of colon, unspecified Medications: Changed From sennosides (senna) 17.2 mg (2 x 8.6 mg) PO BID 30 days 120 tabs 6RF K59.00 - Constipation, unspecified, K62.6 - Ulcer of anus and rectum To sennosides (senna) 17.2 mg (2 x 8.6 mg) PO DAILY 30 days 60 tabs 6RF K59.00 - Constipation, unspecified, K62.6 - Ulcer of anus and rectum From methylcellulose (laxative) (Citrucel) 1,000 mg (2 x 500 mg) PO DAILY 30 days 60 tabs 11RF K59.00 - Constipation, unspecified, K62.6 - Ulcer of anus and rectum To methylcellulose (laxative) (Citrucel) Ok to crush and put in applesauce, etc 1,000 mg (2 x 500 mg) PO DAILY 30 days 60 tabs 11RF K59.00 - Constipation, unspecified, K62.6 - Ulcer of anus and rectum Refilled docusate sodium (Colace) 100 mg PO BID 30 days 60 caps 11RF K59.00 - Constipation, unspecified, K62.6 - Ulcer of anus and rectum TODAYS VISIT [facility] Surgical History Hx of colonoscopy Family History Family/Other No problems noted. Social History Alcohol intake: current Alcohol intake frequency: does not drink Patient Tobacco Use Status: Never used Tobacco Review of Systems Const Denies fatigue, Denies fever(s), Denies night sweats, Denies poor appetite and Denies weight loss Eyes Reports requires corrective lenses ENT Reports Normal hearing present, Denies dental pain, Denies dysphagia, Denies hearing loss, Denies mouth pain, Denies odynophagia, Denies throat swelling, Denies tongue swelling and Reports other (Dentition adequate) GI Details: Denies abdominal pain, Denies melena, Denies bloating, Denies hematochezia, Denies constipation, Denies GI cramping, Denies dysphagia, Denies excessive flatus, Denies early satiety, Denies heartburn, Denies diarrhea, Denies nausea, Denies odynophagia, Denies vomiting and Denies hematemesis Skin/Breast Denies pruritus, Denies lesions, Denies rash and Denies jaundice Neuro Reports Normal hearing present and Denies Abnormal speech present Endo Denies fatigue Aller/Immun Denies throat swelling and Denies tongue swelling Physical Exam Vital Signs: Last Vital Signs Pulse 75 12/21/24 10:15 BP 121/68 12/21/24 10:15 BMI result Body Mass Index 21.9 Const General: cooperative, no acute distress, well developed and well groomed Nutritional Appearance: well nourished, obese and overweight Orientation/consciousness: oriented to person, oriented to place and oriented to time Limitations: No language barrier, ambulation with cane, ambulation with walker and wheelchair HEENT Head: Yes normocephalic and Yes atraumatic Eyes General: appearance normal, both eyes and all related structures Pupils: Equal, round and reactive pupils present Neck Neck: Yes normal visual inspection and Yes no lymphadenopathy Thyroid: Thyroid normal Resp Effort & Inspection: normal respiratory effort and able to speak in complete sentences Auscultation: clear to auscultation bilaterally Cardio Rate: regular rate Rhythm: regular rhythm Heart sounds: Normal, physiologic split S2 sound present Peripheral pulses: radial pulses present and posterior tibial pulses present GI Inspection: No distended and No Abdominal panniculus present Palpation (GI): Soft to palpation, nontender, no guarding, not rigid, No hepatosplenomegaly present and Hepatosplenomegaly present Percussion: Yes normal to percussion Auscultation: normal bowel sounds Rectal Exam - Female: deferred Skin General skin exam: no rashes or lesions noted, turgor normal, skin not dry, no jaundice, No spider nevi and no striae Rashes: no rashes Nails: normal Neuro General: oriented to person, oriented to place and oriented to time Cranial nerves: Yes Equal, round and reactive pupils present and Yes Normal hearing present Speech: No Abnormal speech present Extrem General: Yes normal to inspection, No clubbing, No cyanosis and No edema Psych Thought process: Normal thought process present and not confabulating Thought content: Normal thought content present Insight: Good insight present (Psych) Judgement: Good judgement present (Psych) Assessment & Plan Assessment & Plan (1) Tubular adenoma of colon: Comment: 2019 colonoscopy repeat in 5 years Code(s): D12.6 - Benign neoplasm of colon, unspecified Category: Medical (2) Constipation: Code(s): K59.00 - Constipation, unspecified Category: Medical (3) Rectal ulcer: Code(s): K62.6 - Ulcer of anus and rectum Category: Medical (4) Pre-op examination: Code(s): Z01.818 - Encounter for other preprocedural examination Category: Medical Plan There are no prior problems with anesthesia or sedation. She denies any cardiac or respiratory problems. There are no infectious disease problems. - The patient is a 59-year-old female presenting for colon cancer screening and complaining of constipation. - She has been taking Senna, fiber, and stool softeners for management. - Her Senna dosage has been advised for evening use only. - Coordination issues with the pharmacy regarding her prescriptions have been noted. - The patient is on a twice-daily 1000 mg regimen of Citrucel. - A refill of Anusol is needed although it is not regularly used. - She reports no new health issues since her last visit. - Continue to take Senna in the evening as instructed. - Maintain the use of Citrucel twice daily. - Refill Anusol and use it as needed. - Watch the provided Cologuard video and consider participating in the screening. - Contact the pharmacy to ensure medications are dispensed correctly. - Return for follow-up to review treatment progress and any new issues. During the visit, we discussed the ongoing management of constipation, including the current medication regimen and issues with pharmacy alignment. I informed the patient about the importance of maintaining her fiber, stool softener, and Senna therapy, with Senna taken in the evening. We discussed the option of Cologuard as a non-invasive screening for colon cancer, and I provided a video for visual clarification. I emphasized that a positive result would necessitate a colonoscopy for further assessment, explaining that polyps discovered through imaging would require removal to prevent cancer development. I clarified the reasoning behind her medication plan adjustments, confirming the need for correct pharmacy instructions, and we agreed upon follow-up to further evaluate her treatment response. Orders: Referrals GI Procedure Notification D12.6 - Benign neoplasm of colon, unspecified, Z01.818 - Encounter for other preprocedural examination Medications: New bisacodyl (Dulcolax (bisacodyl)) 10 mg (2 x 5 mg) PO BEDTIME 4 tabs 0RF 2 days peg 3350-electrolytes 236-22.74-6.74 -5.86 gram (Golytely) until fecal effluent is clear; do not exceed a total volume of 2,000 mL 240 mL PO Q10M 4,000 mL 0RF 1 day Z12.11 - Encounter for screening for malignant neoplasm of colon Changed From sennosides 17.2 mg (2 x 8.6 mg) PO BID 120 tabs 0RF K62.6 - Ulcer of anus and rectum, K59.00 - Constipation, unspecified To sennosides (senna) 17.2 mg (2 x 8.6 mg) PO .qhs 120 tabs 12RF K62.6 - Ulcer of anus and rectum, K59.00 - Constipation, unspecified From methylcellulose (laxative) 1,000 mg (2 x 500 mg) PO DAILY 60 tabs 9RF K59.00 - Constipation, unspecified, K62.6 - Ulcer of anus and rectum To methylcellulose (laxative) (Fiber Laxative (methylcellulose)) 1,000 mg (2 x 500 mg) PO DAILY 60 tabs 9RF K59.00 - Constipation, unspecified, K62.6 - Ulcer of anus and rectum Refilled docusate sodium 100 mg PO BID 60 caps 10RF K62.6 - Ulcer of anus and rectum, K59.00 - Constipation, unspecified Coding Level of Care Code Est Pt Level 4 (36144) Diagnoses Tubular adenoma of colon D12.6 Constipation K59.00 Rectal ulcer K62.6 Pre-op examination Z01.818 Time Spent (min) 37
[2024-12-21 10:15] VITALS: BP 121/68; PULSE 75; BMI 21.9
--- OUTSIDE RECORDS SUMMARY | 2024-12-21 12:09 | XMS_ITS | Encounter Summary ---
Author Organization [employer] Address [address] [place] [address] 7 [place] [address] Care Team Providers Care Balance Assembler Name Role Phone Name, Fam HUIZAR Primary Care Provider [phone] Lesia Carrasco MD Primary Care Provider + Encounter Details Date Type Department Care Team (Late st Contact Info) Description 04/06/2022 Abstract [facility] MEDICINE [address] [place], [place] [phone] Name, MD Fam [address] [place], [place] [phone] Social History Tobacco Use Types Packs/Day Years [...] on filedocumented in this encounter Care Teams Balance Assembler Relationship Specialty Start Date End Date Name, MD Fam [address] [place] [address] [phone] PCP - General Family Medicine 10/05/17 04/13/24 Lesia Carrasco MD [address] [place] [address] [id number] PCP - General Internal Medicine 04/14/24 Kristine Silva 10/26/13 documented as of this encounter
--- OUTSIDE RECORDS SUMMARY | 2024-12-21 12:09 | XMS_ITS | Encounter Summary ---
Author Organization [employer] Address [address] [facility] 7t [place] [address] Care Team Providers Care Finisher Wallboard And Plasterboard Name Role Phone Lesia Carrasco MD Primary Care Provider + Reason for Visit * Reason Onset Date Comments Medication Question 12/19/2024 Encounter Details Date Type Department Care Team ([facility] st Contact Info) Description 12/19/2024 Telephone [facility] MEDICINE [address] [place], [place] [phone] Lesia Carrasco MD [address] [place], [place] [phone] Medication Question Social History Tobacco Use Types Packs/Day Years [...] encounter Miscellaneous Notes * Telephone Encounter - Rashida Lobato RN - 12/19/2024 12:57 PM EDT Med list faxed as requested * Telephone Encounter - Maritza Spencer - 12/19/2024 12:14 PM EDT Tc from [facility] requesting to fax over the med list for a Medication Reconciliation, [facility] stated that they needed urgently and they want to make sure that pt is taking the correct med. Attention to [facility] documented in this encounter Plan of Treatment Not on file documented as of this encounter Visit Diagnoses Not on filedocumented in this encounter Care Teams Finisher Wallboard And Plasterboard Relationship Specialty Start Date End Date Lesia Carrasco MD [address] [place] [id number] PCP - General Internal Medicine 04/14/24 Kristine Silva 10/26/13 documented as of this encounter
--- OUTSIDE RECORDS SUMMARY | 2024-12-21 12:09 | XMS_ITS | Encounter Summary ---
Author Organization [employer] Address [address] [facility] 7t [place] [address] Care Team Providers Care Post Acute Care Nurse Practitioner Name Role Phone Name, Fam HUIZAR Primary Care Provider [phone] Lesia Carrasco MD Primary Care Provider + Encounter Details Date Type Department Care Team (Late st Contact Info) Description 08/05/2022 Abstract [facility] MEDICINE [address] [place], [place] [phone] Name, MD Fam [address] [place], [place] [phone] Social History Tobacco Use Types Packs/Day Years [...] EDT Recommended 5 year follow up ( [facility]) Historical Provider HEALTH MAINTENANCE Final Result documented in this encounter Visit Diagnoses Not on filedocumented in this encounter Care Teams Post Acute Care Nurse Practitioner Relationship Specialty Start Date End Date Name, MD Fam [address] [place] [address] PCP - General Family Medicine 10/05/17 04/13/24 Lesia Carrasco MD [address] [place] [address] PCP - General Internal Medicine 04/14/24 Kristine Silva 10/26/13 documented as of this encounter
--- OUTSIDE RECORDS SUMMARY | 2024-12-21 12:09 | XMS_ITS | Clinical Summary ---
Author Organization [employer] Address [address] [place] [address] 7[address] [place] [address] Care Team Providers Care Brake Operator Name Role Phone Lesia Carrasco MD Primary [...] other day 45 tablet 3 4 Active Ascorbic Acid (vitamin C) 500 MG tablet Take 1 tablet (500 mg) by mouth Once per day. 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 Iron deficiency 01/06/2024 Assessment & Plan (08/23/2024 3:25 PM EDT): Patient taking iron weekly Will check H&H at next visit appointment, if needed will order additional labs. I asked Corine and Isela to follow-up with GI (they have GI office information) at next appointment regarding next colonoscopy (she is overdue for follow-up colonoscopy since last year) Assessment & Plan (06/01/2024 9:54 AM EDT): [...] time. Severe mood disorder with psychotic features 08/ Assessment & Plan (08/23/2024 3:26 PM EDT): Patient seems to be doing well, no psychotic events or ideations. Continue close follow-up with mental health provider, no change in medications, she feels safe at home and is able to reach out for safety (to her caregivers) Follow-up with me in 6 months Assessment & Plan (06/01/2024 9:53 AM EDT): Patient seems to be doing well, no psychotic events or ideations. Continue close follow-up with mental health provider, continue clozapine, Cogentin She feels safe at home and is able to reach out for safety (to her caregivers) Follow-up with me in 6 months Encounters Date Type Department Care Team Description 12/19/2024 Telephone [facility] MEDICINE [address] [place] [address] Lesia Carrasco MD Medication Question 10/11/2024 Refill [facility] [address] [place], [place] [phone] Lesia Carrasco MD from Last 3 Months Immunizations Immunization Administration Dates Next Due Influenza injectable quadrivalent preservative f ree 01/08/2022 Influenza, IIV3, injectable 10/15/2010, 9 Influenza, seasonal, injectable, preservative fr ee 01/06/2024 Moderna Covid-19 Vaccine 12+ 08/02/2020,07/06/19 21 Pfizer Covid-19 Vaccine 12+ 01/06/2024 TD (adult), 2 Lf tetanus tox [...] the past 12 months, has t he [employer], gas, oil or water [employer] threatened to shut off services in your [...] 95 01/06/2024 9:41 AM EST Temperature 36.7 C (98.1 F) 01/06/2024 9:41 AM EST Respiratory Rate 16 01/06/2024 9:41 AM EST [...] FOBT 1965 HIV Screening 1965 Sigmoidoscopy 1965 Disability Screening 1965 Alcohol/Substance Use Screening 1977 Hepatitis C Screening 06/23/1983 Hepatitis B Vaccines (2 of 3 - 19+ 3-dose series) 04/02/2014 03/05/2014 Pneumococcal Vaccine: 50+ Years (1 of 1 - PCV) 06/23/2015 Zoster Vaccines (1 of 2) 06/23/2015 Colonoscopy 2023 06/21/2018 Colorectal Cancer Screening 2023 Influenza Vaccine (#1) 2024 , 01/08/2022, 10/15/2010, Additional history exists SDOH Screening 12/28/2024 12/29/2023 Tobacco Screening 01/05/2025 01/06/2024 Cervical Cancer Screening 06/04/2025 HPV/Cotest 06/04/2025 06/04/2020 Pap Smear 06/04/2025 06/04/2020 Mammogram 10/05/2025 10/06/2023, 02/23, 03/19/2022 DTaP/Tdap/Td Vaccines (3 - Td or Tdap) 01/05/2034 01/06/2024, 11/27/2010, 01/01/1999 RSV Patients and Patients Aged 60 years or older (1 - 1-dose 75+ series) 2040 COVID-19 Vaccine Completed 01/06/2024, , 08/02/2020, Additional history exists HIB Vaccines Aged Out [...] patient's age to complete this topic Meningococcal B Vaccine Aged Out No l onger eligible based on patient's age to complete this topic Meningococcal Vaccine Aged Out No gabriel jame eligible based on patient's age to complete this topic RSV under 20 months Aged Out No longe r eligible based on patient's age to complete this topic Rotavirus Vaccines Aged Out No longer eligible based on patient's age to complete this topic Procedures Procedure Name Priority Date/Time Associated Diagnosis Comments BI MAMMOGRAM SCREENING TOMOSYNTHESIS BILATERAL Routine 10/06/2023 10:45 AM EDT HPV MRNA E6/E7 Routine 06/04/2020 10:49 AM EDT THINPREP PAP Routine 06/04/2020 10:49 AM EDT HM COLONOSCOPY Routine 06/21/2018 9:16 AM EDT from Last 3 Months or Most Recently Relevant to Health Maintenance Results * BI Mammogram Screening Tomosynthesis Bilateral (10/06/2023 10:45 AM EDT) Anatomical Region Laterality Modality Breast Bilateral Mammography 10/06/2023 10:4 5 AM EDT Narrative 11/03/2023 10:07 AM EDT [facility] [address] [place] [address] Mammography Report Signed with Addenda Patient: Nicole Rand MR#: [id number] : 1965 Acct:[id number] Age/Sex: 58 / F ADM Date: 10/06/23 Loc: HO.MAMMO Attending Dr: Fam Nunes MD Ordering Physician: Fam Nunes MD Results: 2Benign Fi ndings Date of Service: 10/06/23 Follow Up: 1 Year From Orig ina Mammogram Procedure(s): MM tomosynthesis screening BI Accession Number(s): [id number] cc: Fam Nunes MD ADDENDUM ADDENDUM #1 ADDENDUM: This examination has been reviewed remains a BI-RADS Category 2. OVERALL ASSESSMENT: BI-RADS 2 - Benign Findings RECOMMENDATION: 1 year F/U Electronically signed by: La Leon MD 11/09/2023 01:08 PM EDT Addendum Dictated By: La Leon MD Addendum [...] Alexsandra Wall MD 11/03/2023 10:04 AM EDT Dictated By: Alexsandra Wall MD Signed By: <Electronically signed by Alexsandra Wall MD in OV> 11/03/23 1004 DD/ 1045 TD/TT: 10/06/23 1100 Office Machine Servicer: Procedure Note Donotuseinterpreter, Image - 11/09/2023 [facility] [address] [place] [address] Mammography Report Signed with Addenda Patient: Maylin RandR#: [id number] : 1965Acct:[id number] Age/Sex: 58 / FADM Date: 10/06/23 Loc: HO.MAMMO Attending Dr: Fam Nunes MD Ordering Physician: Fam Nunesults: 2Benign Fi ndings Date of Service: 10/06/23Follow Up: 1 Year From Orig inal Mammogram Procedure(s): MM tomosynthesis screening BI Accession Number(s): [id number] cc: Fam Nunes MD ADDENDUM ADDENDUM #1 [...] Wall MD Signed By: <Electronically signed by Alexsandra Wall MD in OV> 11/03/23 1004 DD/ TD/TT: 10/06/23 1100 Office Machine Servicer: Fam Nunes MD IM BI PROCEDURES Edited Result - Final * THINPREP PAP (06/04/2020 10:49 AM EDT) Clinical Information: None given [facility] COMMENT SEE COMMENT [facility] Comment: EXPLANATORY NOTE: The Pap is a screening test for cervical cancer. It is not a diagnostic test and is subject to false negative and false positive results. It is most reliable when a satisfactory sample, regularly obtained, is submitted with relevant clinical findings and history, and when the Pap result is evaluated along with historic and current clinical information. Contour Grinder: SEE COMMENT [facility] Comment: MXD, CT (ASCP) CT screening location: [place] [address] Interpretation/Res ult: SEE COMMENT [facility] [...] Genesis MARTINEZ LAB PATHOLOGY ORDERABLES Final Result [facility] [address] * HPV mRNA E6/E7 (06/04/2020 10:49 AM EDT) HPV nRNA E6/E7 Not Detected Not Detected [facility] Comment: Methodology: Intake Nurse-Mediated Amplification This assay detects E6/E7 viral messenger RNA (mRNA) from 14 high-risk HPV types (16,18,31,33,35,39,45,51,52,56,58,59,66,68). The analytical performance characteristics of this assay have been determined by [employer]. The modifications have not been cleared or approved by the FDA. This assay has been validated pursuant to the CLIA regulations and is used for clinical purposes. For additional information, please refer to http://[email or web address]/faq/HEV795i9 (This link if provided for information/ educational purposes only.) 06/04/2020 10:4 9 AM EDT us Genesis Lopez CNM LAB BLOOD ORDERABLES Michelle l Result [facility] [address] [place] [id number], * Hm Colonoscopy (06/21/2018 9:16 AM EDT) Colonoscopy Normal Normal Narrative Bernice Pham - 06/21/2018 9:16 AM EDT Recommended 5 year follow up ( [facility] us Historical Provider HEALTH MAINTENANCE Final Result from Last 3 Months or Most Recently Relevant to Health Maintenance Insurance * Guarantor: Nicole Rand Account Type Relation to Patient Date of Phone Billing Address Personal/Family Self [address] Care Teams Brake Operator Relationship Specialty Start Date End Date Lesia Carrasco MD [address] [place] [address] PCP - General Internal Medicine 04/14/24 Kristine Silva 10/26/13
== END 2024-12-21 10:44 | disposition home or self-care (01) ==
LOC: HO.HGI 10:06
PROVIDERS: PCP Nurse Practitioner Primary Care; Visit Provider Nurse Practitioner
DX: Z01.818 Encounter for other preprocedural examination (principal); Z12.11 Encounter for screening for malignant neoplasm of colon; Z86.0100 Personal history of colon polyps, unspecified; K59.00 Constipation, unspecified; K62.6 Ulcer of anus and rectum
CPT/HCPCS: 99214